=== PATIENT | female | born 1975 | race Caucasian/White ===

== ENCOUNTER → 2018-08-28 07:46 | Outpatient (CLI) | payer OTHER, MEDICAID, SELFPAY ==
[2018-08-28 10:15] LABS: Thyroid Stimulating Hormone 1.24 uIU/mL (0.47-4.68)
== END ==
PROVIDERS: PCP Family Medicine; Visit Provider Family Medicine
DX: E03.9 Hypothyroidism, unspecified (principal)
CPT/HCPCS: 36415; 84443

== ENCOUNTER → 2019-07-24 08:19 | Outpatient (CLI) | payer OTHER, MEDICAID, SELFPAY ==
[2019-07-24 09:21] LABS: Cholesterol 199 mg/dL (140-199); Glucose 109 mg/dL (70-100); HDL Cholesterol 42 mg/dL (40-60); LDL Cholesterol Calculated 129 mg/dL (<100); Triglycerides 142 mg/dL (35-150)
[2019-07-26 17:22] LABS: Hemoglobin A1C% w Est Avg Glu 5.1 % (4.0-6.0)
== END ==
PROVIDERS: PCP Family Medicine; Visit Provider Family Medicine
DX: E66.9 Obesity, unspecified (principal); E03.9 Hypothyroidism, unspecified; R73.09 Other abnormal glucose
CPT/HCPCS: 36415; 80061; 82947; 83036; 84443

== ENCOUNTER → 2020-03-14 09:42 | Outpatient (CLI) | payer OTHER, MEDICAID, SELFPAY ==
--- NOTE | 2020-03-14 | DI.MG.S_ITS ---
BILATERAL DIGITAL SCREENING MAMMOGRAM 3D/2D WITH CAD: 03/14/2020 CLINICAL: Routine screening. Comparison is made to exam dated: 01/24/2018 [facility]. The tissue of both breasts is heterogeneously dense. This may lower the sensitivity of mammography. Current study was also evaluated with a Computer Aided Detection (CAD) system. No significant masses, calcifications, or other findings are seen in either breast. There has been no significant interval change. IMPRESSION: NEGATIVE There is no mammographic evidence of malignancy. A 1 year screening mammogram is recommended. This exam was interpreted at Station ID: [id number]. NOTE: For mammograms, a report in lay terms will be sent to the patient. Approximately 15% of breast malignancies will not be visualized mammographically. In the management of a palpable breast mass, a negative mammogram must not discourage biopsy of a clinically suspicious lesion. Electronically Signed By: Navneet mattson/kiran:03/14/2020 11:00:16 letter sent: Normal Exam ACR BI-RADS Category 1: Negative [id number]
== END ==
PROVIDERS: PCP Family Medicine; Referring Provider Family Medicine; Visit Provider Family Medicine
DX: Z12.31 Encounter for screening mammogram for malignant neoplasm of breast (principal)
CPT/HCPCS: 77063; 77067

== ENCOUNTER → 2020-06-17 09:16 | Outpatient (CLI) | payer OTHER, MEDICAID, SELFPAY ==
[2020-06-17 11:44] LABS: Thyroid Stimulating Hormone 1.11 uIU/mL (0.47-4.68)
== END ==
PROVIDERS: PCP Family Medicine; Referring Provider Family Medicine; Visit Provider Family Medicine
DX: E03.9 Hypothyroidism, unspecified (principal)
CPT/HCPCS: 36415; 84443

== ENCOUNTER → 2021-07-31 08:30 | Outpatient (CLI) | payer OTHER, MEDICAID, SELFPAY ==
[2021-07-31 09:51] LABS: Hemoglobin A1C% w Est Avg Glu 4.8 % (4.0-6.0)
[2021-07-31 10:08] LABS: BUN Creatinine Ratio 16.2 (6-22); Blood Urea Nitrogen 17 mg/dL (7-17); Calcium 9.2 mg/dL (8.4-10.2); Carbon Dioxide 29 mmol/L (22-32); Chloride 101 mmol/L (98-107); Cholesterol 179 mg/dL (140-199); Estimated Glomerular Filt Rate 57.2 mL/min (>60); Glucose 89 mg/dL (70-100); HDL Cholesterol 45 mg/dL (40-60); HEMOLYSIS < 15 (0-50); LDL Cholesterol Calculated 109 mg/dL (<100); Potassium 4.1 mmol/L (3.4-5.1); Sodium 139 mmol/L (137-145); Triglycerides 126 mg/dL (35-150)
== END ==
PROVIDERS: Psychiatry & Neurology Psychiatry; PCP Family Medicine; Referring Provider Family Medicine; Visit Provider Family Medicine
DX: E03.9 Hypothyroidism, unspecified (principal); F33.3 Major depressive disorder, recurrent, severe with psychotic symptoms; Z51.81 Encounter for therapeutic drug level monitoring
CPT/HCPCS: 36415; 80048; 80061; 83036; 84443

== ENCOUNTER → 2021-11-21 08:36 | Outpatient (CLI) | payer OTHER, MEDICAID, SELFPAY ==
[2021-11-21 11:50] LABS: Thyroid Stimulating Hormone 7.87 uIU/mL (0.47-4.68)
== END ==
PROVIDERS: PCP Family Medicine; Referring Provider Family Medicine; Visit Provider Family Medicine
DX: E03.9 Hypothyroidism, unspecified (principal)
CPT/HCPCS: 36415; 84443

== ENCOUNTER → 2022-03-25 09:13 | Outpatient (CLI) | payer OTHER, MEDICAID, SELFPAY ==
[2022-03-25 10:35] LABS: Thyroid Stimulating Hormone 8.25 uIU/mL (0.47-4.68)
== END ==
PROVIDERS: PCP Family Medicine; Referring Provider Family Medicine; Visit Provider Family Medicine
DX: E03.9 Hypothyroidism, unspecified (principal); R89.9 Unspecified abnormal finding in specimens from other organs, systems and tissues
CPT/HCPCS: 36415; 84443

== ENCOUNTER → 2022-06-24 09:52 | Outpatient (CLI) | payer OTHER, MEDICAID, SELFPAY ==
[2022-06-24 12:11] LABS: Add Manual Diff / Slide Review NO; Basophils Absolute Auto 0 /uL (0-100); Basophils Percent Auto 0.6 % (0-2); Eosinophils Absolute Auto 300 /uL (0-450); Hematocrit 35.7 % (36-46); Hemoglobin 12.3 g/dL (12.0-16.0); Lymphocytes Absolute Auto 1400 /uL (1100-4500); Lymphocytes Percent Auto 19.6 % (25-40); Mean Corpuscular HGB Conc 34.5 % (30-36); Mean Corpuscular Hemoglobin 32.3 PG (26-34); Mean Corpuscular Volume 93.7 fL (80-100); Monocytes Absolute Auto 500 /uL (0-900); Monocytes Percent Auto 7.2 % (3-14); Neutrophils Absolute Auto 4900 /uL (1500-7000); Neutrophils Percent Auto 68.6 % (50-75); Platelet Count 312 X10^3/uL (150-400); Red Blood Cell Count 3.81 X10^6/uL (4.0-5.2); Red Cell Distribution Width 12.6 % (11.6-14.8); White Blood Cell Count 7.2 X10^3/uL (4.5-11.0)
[2022-06-24 12:34] LABS: Alanine Aminotransferase 20 IU/L (<35); Albumin 4.2 g/dL (3.5-5.0); Albumin Globulin Ratio 1.1 (1.0-2.8); Alkaline Phosphatase 92 U/L (38-126); Aspartate Aminotransferase 32 IU/L (14-36); BUN Creatinine Ratio 15.8 (6-22); Bilirubin Total 0.2 mg/dL (0.2-1.3); Blood Urea Nitrogen 15 mg/dL (7-17); Calcium 8.5 mg/dL (8.4-10.2); Carbon Dioxide 28 mmol/L (22-32); Chloride 100 mmol/L (98-107); Estimated Glomerular Filt Rate > 60 mL/min (>60); Globulin 3.8 g/dL (1.7-4.1); Glucose 83 mg/dL (70-100); HEMOLYSIS < 15 (0-50); Potassium 3.9 mmol/L (3.4-5.1); Sodium 139 mmol/L (137-145)
[2022-06-24 14:02] LABS: TSH w/ Reflex to FT4 1.79 uIU/mL (0.47-4.68)
== END ==
PROVIDERS: PCP Family Medicine; Referring Provider Physician Assistant; Visit Provider Physician Assistant
DX: Z01.818 Encounter for other preprocedural examination (principal); E03.9 Hypothyroidism, unspecified
CPT/HCPCS: 36415; 80053; 84443; 85025

== ENCOUNTER 2022-07-05 12:53 | Emergency (ER) | payer OTHER, MEDICAID, SELFPAY ==
[2022-07-05 13:20] VITALS: BP 154/75; PULSE 73; RESP 18; TEMP 36.4; O2SAT 100; BMI 34.2
--- NOTE | 2022-07-05 13:23 | DI.RAD.S_ITS ---
PROCEDURE: XR ANKLE RT MIN 3V INDICATIONS: swelling after popping TECHNIQUE: 3 views of the ankle were acquired. COMPARISON: [facility], CR, XR INTRAOPERATIVE FLUORO UP TO 1 HOUR, 06/28/2022, 11:48. [facility], CR, XR FOOT 3 VIEWS WEIGHT BEARING BILATERAL, 01/08/2022, 8:11. FINDINGS: Bones: No fractures or dislocations. Postsurgical changes with arthrodesis at the 1st tarsometatarsal joint. Ankle mortise is normally aligned. No suspicious bony lesions. Soft tissues: No tibiotalar joint effusion. Achilles tendon appears normal. Soft tissue swelling around the ankle. There is lucency in the lateral aspect the ankle. IMPRESSION: 1. No acute osseous abnormalities. 2. Postsurgical changes. 3. Soft tissue swelling and lucency around ankle. Dictated by: Cuco Huang M.D. on 07/05/2022 at 13:49 Approved by: Cuco Huang M.D. on 07/05/2022 at 13:55
[2022-07-05 14:30] VITALS: BP 151/73; PULSE 73; RESP 18; TEMP 37.1; O2SAT 100
--- NOTE | 2022-07-05 14:36 | ED.LOWEXIN ---
HPI - Extremity Injury (Lower) <Vincent Chambers PA-C - Last Filed: 07/05/22 15:51> General Chief Complaint: Extremity Injury, Lower Stated Complaint: Ankle popped- extreme pain Time Seen by Provider: 07/05/22 12:59 Source: patient Mode of arrival: Ambulatory History of Present Illness HPI Narrative: Patient is a 46-year-old female who presents to the emergency room today with complaint of pain and swelling to her right ankle that started at about 1145 this a.m.. Patient she was placing her knee onto the knee walker and felt a pop. Strongly denies any pressure trauma to the area prior to during or after the knee was placed on the walker. States that after that she started to feel this pain and swelling in her ankle and then she reported here today. Patient also admits to having a surgery done on June 28 to her right foot where she had a bunion removed and also had a lengthening of 1 of the bones in the lateral side of her foot. States the surgery was done by .. States that since the surgery the foot has been wrapped with an Jese wrap until yesterday where a boot was placed. Was scheduled to follow-up with Dr. Ratliff in 2 weeks. Denies any other concerns Related Data Home Medications Medication Instructions Recorded Confirmed levocetirizine 5 mg tablet (Xyzal) 5 mg PO DAILY PRN allergy symptoms 04/19/22 06/20/22 Previous Rx's Medication Instructions Recorded lamotrigine 100 mg tablet See Rx Instructions .Route 12/11/21 .COMPLEX #270 tabs fluoxetine 20 mg capsule 60 mg PO DAILY 90 days #270 caps 04/19/22 ziprasidone HCl 80 mg capsule 160 mg PO BEDTIME 90 days #180 caps 04/19/22 diazepam 10 mg tablet See Rx Instructions PO .COMPLEX 06/17/22 #45 tabs levothyroxine 125 mcg tablet See Rx Instructions .Route 07/01/22 .COMPLEX #90 tabs Allergies Allergy/AdvReac Type Severity Reaction Status Date / Time No Known Drug Allergies Allergy Verified 06/20/22 14:54 Review of Systems <Vincent Chambers PA-C - Last Filed: 07/05/22 15:51> Review of Systems Narrative: R.O.S.: General: No fever, chills or fatigue. Cardiovascular: No chest pain or palpitations Respiratory: No S.O.B. HEENT: No congestion, ear pain, rhinorrhea, sore throat or tinnitus Gastrointestinal: No nausea or vomiting : No urinary concerns Skin: No rash or associated abnormalities Musculoskeletal: Pain and swelling to the right foot and ankle. ? Neurological: Awake, alert and in not apparent distress. No Headaches, changes in vision or other related neurological concerns. Patient History <Vincent Chambers PA-C - Last Filed: 07/05/22 15:51> Medical History (Updated 07/05/22 @ 15:50 by Vincent Chambers PA-C) Anxiety Depression Fibroids Hypothyroidism Surgical History No history of previous surgery (06/2016) Family History Brother Age: 41 Depression Mental health problem Joint pain Father Age: 71 Depression Diabetes mellitus Hypertension Mental health problem Grandfather Stroke Heart disease Mother Age: 66 Anxiety Mental health problem Grandmother Age: 88 Alzheimer's disease Mental health problem Grandmother No problems noted. Grandfather No problems noted. Social History marital status: unmarried,single household members: family lives independently: Yes caregiver/support person: No housing: apartment pets and animals: Yes education level: college occupational status: employed current occupational exposures/hazards: No special frederick needs: No leisure activities: reading seatbelt use: always helmet use: Yes water heater temp set < 120 deg: Yes working smoke detector in home: Yes fire extinguisher in home: Yes carbon monox detector in home: Yes firearms in home: No do you feel safe at home: Yes Smoking Status: Never smoker second hand exposure: No alcohol intake: never substance use type: does not use during the past year weight has: decreased > 10 lbs well-balanced diet: daily or most days daily servings fruits/ve-4 caffeine: Yes eating out: rarely or never Type(s) of exercise: walking frequency: daily duration: 30-45 minutes/day Smoking Status: Never smoker Exam <Vincent Chambers PA-C - Last Filed: 07/05/22 15:51> Narrative Exam Narrative: Physical Exam: ? General: normal appearance, well developed, well nourished, alert, and awake. Not in acute distress. ? Head: Normocephalic, no lesions. Chest: Lungs CTAB, no rales, rhonchi or wheezes. ?? Heart: RRR, no murmurs, rubs or gallops. Eyes: PERRLA, EOM's full, conjunctivae clear. ? Neuro: Physiological, no localizing findings, CN3-12 intact. ?? Extremities: Patient has swelling to the entire right foot and distal ankle area. The foot is tender on the dorsal area proximal to the torso area at the area of the 1st and 2nd metatarsals. Patient has Band-Aids on the medial area of the foot at the lateral 1st distal phalangeal joint and at the lateral distal 1st metatarsal area. ? Skin: Normal, no rashes, no lesions noted. ?? PSYCHIATRIC: The mood is good, no blunted affect. Speech is clear. Thought process is linear, thought content is appropriate. The voice is without significant inflection. Gastrointestinal: Soft; NT; ND; Pos BS with Neg. rebound tenderness. No scars or major deformities noted on Visual Inspection. Initial Vital Signs Initial Vital Signs: Vital Signs Temperature 97.6 F 07/05/22 13:20 Pulse Rate 73 07/05/22 13:20 Respiratory Rate 18 07/05/22 13:20 Blood Pressure 154/75 H 07/05/22 13:20 Pulse Oximetry 100 07/05/22 13:20 Oxygen Delivery Method 07/05/22 13:20 <Collin Rosario DO - Last Filed: 07/05/22 16:04> Initial Vital Signs Initial Vital Signs: Vital Signs Temperature 97.6 F 07/05/22 13:20 Pulse Rate 73 07/05/22 13:20 Respiratory Rate 18 07/05/22 13:20 Blood Pressure 154/75 H 07/05/22 13:20 Pulse Oximetry 100 07/05/22 13:20 Oxygen Delivery Method 07/05/22 13:20 Course <Vincent Chambers PA-C - Last Filed: 07/05/22 15:51> Orders Ordered: ED Orders 07/05/22 13:23 XR ankle RT min 3V Stat Vital Signs Vital signs: Vital Signs - 8 hr 07/05/22 13:20 07/05/22 14:30 Temperature 97.6 F 98.7 F Pulse Rate 73 73 Respiratory Rate 18 18 Blood Pressure 154/75 H 151/73 H Pulse Oximetry 100 100 Oxygen Delivery Method Room Air Room Air <Collin Rosario DO - Last Filed: 07/05/22 16:04> Orders Ordered: ED Orders 07/05/22 13:23 XR ankle RT min 3V Stat Vital Signs Vital signs: Vital Signs - 8 hr 07/05/22 13:20 07/05/22 14:30 Temperature 97.6 F 98.7 F Pulse Rate 73 73 Respiratory Rate 18 18 Blood Pressure 154/75 H 151/73 H Pulse Oximetry 100 100 Oxygen Delivery Method Room Air Room Air MDM - Extremity Injury (Lower) <Vincent Chambers PA-C - Last Filed: 07/05/22 15:51> Imaging Data Extremity x-ray #1: Radiologist's Impression: [address] [address] XRay Report Signed Patient: Barbara Toro I MR#: [id number] : 1975 Acct:[id number] Age/Sex: 46 / F Date of Service: 07/05/22 Loc: ED Accession Number: [id number] ?? Procedure: XR ankle RT min 3V Ordering Provider: Vincent Chambers P.A-C PROCEDURE:? XR ANKLE RT MIN 3V ? INDICATIONS:? swelling after popping ? TECHNIQUE:? 3 views of the ankle were acquired.? ? COMPARISON:? [facility], CR, XR INTRAOPERATIVE FLUORO UP TO 1 HOUR, 06/28/2022, 11:48.? [facility], CR, XR FOOT 3 VIEWS WEIGHT BEARING BILATERAL, 01/08/2022, 8:11. ? FINDINGS:? ? Bones:? No fractures or dislocations.? Postsurgical changes with arthrodesis at the 1st tarsometatarsal joint.? Ankle mortise is normally aligned.? No suspicious bony lesions.? ? Soft tissues:? No tibiotalar joint effusion.? Achilles tendon appears normal.? Soft tissue swelling around the ankle.? There is lucency in the lateral aspect the ankle. ? ? IMPRESSION: ? 1. No acute osseous abnormalities. 2. Postsurgical changes. 3. Soft tissue swelling and lucency around ankle. ? Dictated by: Cuco Huang M.D. on 07/05/2022 at 13:49 ? ? Approved by: Cuco Huang M.D. on 07/05/2022 at 13:55 ? MDM Narrative Medical decision making narrative: Patient was in the emergency room playing all day with pain status post a he heard getting onto the walker. Admits to having surgery done on June 28 to her right foot. X-ray revealed postsurgical changes swelling and lucency around the ankle. This provider called discussed the patient's condition with , who is on-call for . Dr. Pryor advised the patient to continue in a non weight bearing boot at this time and has scheduled the patient to see on Friday of this week at 3:40 a.m.. Advised of this information. Patient also advised to continue the pain medication that she has now. She states she has enough for another week. Patient also advised to return to his original emergent concerns arise before her appointment on Friday at 3:40 a.m.. Patient agrees with plan. Discharge Plan Departure Patient Disposition: Home Clinical Impression: Acute pain of right foot, Acute postoperative pain of right foot Instructions: DI for Foot Pain Activity Restrictions/Additional Instructions: *You have been diagnosed with postsurgical pain to her right foot. I have discussed your issue with the on-call provider of the surgeon who operated only a foot. And they have scheduled for you to follow-up with on Friday at 3:40 a.m.. The on-call orthopedic provider advised her to continue to wear the boot and continue to non weightbear and continue to take your current pain medicines until the follow-up. You were also advised to return to the emergency room should any emergent concerns arise. [ ] *What to do: *Please continue to take your regular medications as directed. [ ] New medication prescriptions sent to your pharmacy: [ ] [ ] New medication written as a paper prescription [x] No new medications given *Please follow up with your primary care provider in 2-3 days, call for an appointment. Let them know you were seen in the Emergency Department and that we ask that you be seen in follow up. We will electronically transmit a record of today's note if your PCP is in our system *If you do not have a primary care provider please contact the [facility] Resource line at [phone]. They will ask some questions about your medical history and help get you set up with a doctor in the community. *Return to Emergency Department if you should have any new, worsening or concerning symptoms, such as [fever greater than 101 F, shaking chills, worsening pain, persistent vomiting or other bothersome symptoms] Prescriptions: No Action levocetirizine [Xyzal] 5 mg tablet 5 mg PO DAILY PRN (Reason: allergy symptoms) ziprasidone HCl 80 mg capsule 160 mg PO BEDTIME 90 Days Qty: 180 1RF fluoxetine 20 mg capsule 60 mg PO DAILY 90 Days Qty: 270 1RF lamotrigine 100 mg tablet See Rx Instructions .ROUTE .COMPLEX Qty: 270 2RF Dose Instruction: TAKE THREE TABLETS BY MOUTH DAILY Rx Instructions: TAKE THREE TABLETS BY MOUTH DAILY diazepam 10 mg tablet See Rx Instructions PO .COMPLEX Qty: 45 5RF Rx Instructions: 5mg QAM, 10mg QHS levothyroxine 125 mcg tablet See Rx Instructions .ROUTE .COMPLEX Qty: 90 0RF Dose Instruction: TAKE ONE TABLET BY MOUTH ONE TIME DAILY Rx Instructions: TAKE ONE TABLET BY MOUTH ONE TIME DAILY Referrals: Yessica Rodgers MD [Primary Care Provider] - <Collin Rosario, DO - Last Filed: 07/05/22 16:04> Cosign ED Attending Cosignature Attestation: Dr Rosario Co-Sign Statement: I was available for consultation during this patient's emergency department visit. This chart is signed by myself for administrative purposes only. I did not have direct contact with this patient during this visit. They were seen independently by the APC.
[2022-07-05 16:04] VITALS: BP 143/78; PULSE 68; RESP 18; O2SAT 100
== END 2022-07-05 16:04 | disposition home or self-care (01) ==
PROVIDERS: Emergency Provider Physician Assistant; PCP Family Medicine
DX: M25.571 Pain in right ankle and joints of right foot (principal); G89.18 Other acute postprocedural pain; X50.1XXA Overexertion from prolonged static or awkward postures, initial encounter
CPT/HCPCS: 73610; 99283

== ENCOUNTER 2022-12-26 08:15 | Outpatient (RCR) | payer OTHER, MEDICAID, SELFPAY ==
--- NOTE | 2022-11-07 15:45 | PT.OPPOC ---
Physical, Occupational & Speech Therapy At [facility] Current Diagnoses Hallux valgus (acquired), right foot (11/07/22) Hallux valgus (acquired), left foot (11/07/22) Spontaneous rupture of other tendons, unspecified lower leg (11/07/22) Visit Care Team Role Provider Type Yessica Rodgers MD Family Provider Physician Primary Care Provider Specialty: Family Practice Address: [address] [place] [address], [facility] [place], [address] Email: [email or web address] Alberto Jimenez DPM Attending Provider Non-Staff Referring Provider Specialty: Podiatry Address: [address] [place] [address], [id number] Email: Plan Of Care PT-OP-T Assessment and Plan Start: 11/06/22 11:52 Freq: Status: Active Protocol: Document 11/07/22 09:06 LRN (Rec: 11/07/22 09:56 LRN [id number]) Physical Therapy Assessment Rehab Potential Rehabilitation Potential Excellent Evaluation Complexity Number of Personal Factors/Comorbidities 1-2 Number of Body Systems Impaired 4 or More Clinical Presentation at Evaluation Evolving Impairments Impairments Activity Tolerance,Balance, Functional Mobility,Gait,Pain, ROM,Soft Tissue Mobility, Strength Goals Three Impairment Antalgic gait Impairment Decreased R ankle and Big toe mobility resulting in mild antalgic gait. Short Term Goal (STG) Pt will be educated in R ankle mobility and Bilateral big toe ext stretch. STG Duration 11/15/22 Care Home Goal (LTG) Pt will be able to walk without a limp, improve R ankle mobility to normal, and improve J Luis Big toe extension mobility. LTG Duration 11/22/22 Two Impairment Decreased R foot scar mobility Impairment R ankle tension: medial/ lateral, along inner edge of foot length, and front of ankle. Short Term Goal (STG) Pt will be educated in self scar mobs and soft tissue mobilization of R foot for pain relief. STG Duration 11/15/22 Care Home Goal (LTG) Improve scar and soft tissue mobility to decrease ache/pain at R ankle medial, lateral, along inner edge of foot, and in front of ankle with ankle AROM. LTG Duration 11/22/22 One Impairment Pt lacks appropriate self care HEP. Short Term Goal (STG) Educate pt in supportive shoe wear or use of shoe inserts for plantar arch support. STG Duration 11/15/22 Type Soldering Machine Tender Goal (LTG) Pt will be independent in a self care HEP of ankle and big toe mobility and strenghtening ex's. LTG Duration 11/22/22 Assessment Summary Assessment Pt is a 47 yo female who presents s/p R tibialis tendon repair. Pt presents with decreased STM of the foot in the area of the well healed scars, decreased R ankle/big toe mobility and strength. Pt's foot is moderately swollen and mildly warm to the touch around the R ankle and lateral side of the foot in the areas of the healed scars. The pt demonstrates a slight antalgic gait due to decreased R big toe and ankle mobility. The pt's insurance is very limited; therefore the pt has chosen at this time to complete her therapy by the end of this month due to financial concerns. The pt will benefit from skilled physical therapy to progress her towards a self care program to work towards achieving the above stated goals with her restrictive rehabilitative time frame. Physical Therapy Plan Frequency and Duration Frequency of Treatment 2x/Week Plan of Care Start Date 11/07/22 Plan of Care End Date 11/22/22 Therapeutic Interventions Therapeutic Interventions Balance Training,Gait Training ,Home Exercise Program,Joint Mobilizations,Manual Therapy, Neuromuscular Re-education, Self-Care/Home Management,Soft Tissue Mobilization,Taping, Therapeutic Activities, Therapeutic Exercises Modalities Cold Pack/Ice Massage Next Visit Focus/Plan Next Note Type Treatment Note Next Visit Plan Review self care edema management with handout issued . Check j luis Big toe strength. Assess TUG. Next treatment: Educate pt in R toe/ankle ROM, self STM to well healed scars, and LE/foot lymph management. Educate in supportive shoe wear or use of shoe inserts. STM to well healed scars, and LE lymph management. Ther Ex/HEP: R ankle/J Luis Big toe (ext) ROM & strengthening exercises, issue self care of pain/edema management. Balance and gait training. Modalities for pain. Plan of Care Dates Plan of Care Start Date 11/07/22 Plan of Care End Date 11/22/22 Electronically Signed by: Karissa Katz, PT 11/09/22 1446 If you are in agreement with this Plan of Care, please return a signed and dated copy. I have reviewed this Plan of Care and certify that the skilled therapy services above are required to meet the patient?s needs. Physician Signature Date Printed Name and Credentials Clinical Instructor Signature Printed Name and Credentials
--- NOTE | 2022-11-07 17:45 | PT.OIE ---
Current Diagnoses Hallux valgus (acquired), right foot (11/07/22) Hallux valgus (acquired), left foot (11/07/22) Spontaneous rupture of other tendons, unspecified lower leg (11/07/22) Past Medical History (Last Reviewed 03/28/22 @ 09:22 by Su Romano PA-C) Anxiety Depression Fibroids Hypothyroidism Past Surgical History (Last Reviewed 03/28/22 @ 09:22 by Su Romano PA-C) No history of previous surgery (06/2016) Visit Care Team Role Provider Type Yessica Rodgers MD Family Provider Physician Primary Care Provider Specialty: Family Practice Address: [address] [place] [address], [id number] Email: [email or web address] Alberto Jimenez DPM Attending Provider Non-Staff Referring Provider Specialty: Podiatry Address: [address] [place] [address], [id number] Email: Physical Therapy Initial Evaluation PT-OP-A Visit Information Start: 11/06/22 11:52 Freq: Status: Active Protocol: Document 11/07/22 09:06 LRN (Rec: 11/07/22 09:56 LRN [id number]) Out-Patient Physical Therapy Visit Information Visit Information Visit Type Initial Evaluation Visit Start Time 09:06 Visit Stop Time 09:54 Total Visit Minutes 48 Visit Number 10/10 Evaluation Information Evaluation Date 11/07/22 Precautions Precautions On antidepressant and thyroid med (hypothyroid). PT-OP-B Current Condition Start: 11/06/22 11:52 Freq: Status: Active Protocol: Document 11/07/22 09:06 LRN (Rec: 11/07/22 09:56 LRN [id number]) Current Condition History of Current Condition Onset Date 07/23/22 Current Complaints R ankle tightness and pain, limited mobility History of Current Condition R Bunion removed , then tore Tibialis anterior tendon in R ankle and had surgery . Now being referred to PT for rehab. Has been doing R ankle AROM (PF/DF/IV/EV, circles, standing gastroc stretch). Came out of boot and put back in the boot to protect the foot, then came out of boot and was told to move normal. States she has an extra length of tendon in front of ankle placed from organ donor because initially the tendon couldn't be connected. Prior Treatments and Tests gave pt ankle ex's to do daily. Future Testing and Treatments Planned F/U with DPM this month. Developmental History Developmental History R lateral scar from bunion surgery. Treatment Goals Patient/Caregiver Goals Pt goals with therapy is: Not walk with limp, and normal R ankle mobility, decrease ache/ pain at R ankle (medial lateral and tension along inner edge of foot and tension in front of ankle). Prior Functional Status Baseline Function- ADL's Independent Baseline Function- Mobility Independent Baseline Function- Gait Ambulated without assist device or limp. 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 Baseline Function- Other Normal gait ascend/desend stairs. Current Functional Impairments (Reported) Functional Limitations- ADL's Step to step descending stairs . 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 Functional Limitations- Other Pt not able to squat Personal Factors Other Personal Factors That May Effect Depression controlled by meds. Therapy/Recovery Single. Lives in double level home. PT-OP-C Subjective Start: 11/06/22 11:52 Freq: Status: Active Protocol: Document 11/07/22 09:06 LRN (Rec: 11/07/22 09:56 LRN [id number]) Patient Questionnaires Foot & Ankle Ability Measure- ADL and Sports FAAM-ADL Score 56 FAAM-ADL Impairment 20 to 39% Impaired (Score 50- 66) FAAM-Sport Score 16 FAAM-Sport Impairment 40 to 59% Impaired (Score 12- 18) Lower Extremity Functional Scale LEFS Score 60 LEFS Impairment 20 to 39% Impaired (Score 48- 62) OP-PT Pain Assessment Pain Assessment Grid Paper Pain Assessment Grid Completed Yes Location R ankle Pain Location Details Medial/lateral R ankle and along medial side of foot. Intensity 2 Scale Used Numeric (0 - 10) Description Tightness PT-OP-D Balance Start: 11/06/22 11:52 Freq: Status: Active Protocol: Document 11/07/22 09:06 LRN (Rec: 11/07/22 09:56 LRN [id number]) Balance Tests Single Limb Standing Single Limb- Right 1 sec Single Limb- Left 1sec PT-OP-E Functional Tests Start: 11/06/22 11:52 Freq: Status: Active Protocol: Document 11/07/22 09:06 LRN (Rec: 11/07/22 09:56 LRN [id number]) Functional Tests Five Times Sit to Stand Test Score 16 Comments Webbed chair without shoes. PT-OP-G Mobility & Gait Start: 11/06/22 11:52 Freq: Status: Active Protocol: Document 11/07/22 09:06 LRN (Rec: 11/09/22 14:43 LRN [id number]) OP Gait Assessment Gait Gait Assistance Required: Independent Able to Maintain Weight Bearing Status Yes During Gait Assistive Devices Assistive Device None Gait Deviations General Gait Pattern Antalgic Factors Limiting Gait Function Factors Limiting Gait Function Decreased Sensation,Decreased Strength,Limited Range of Motion,Pain,Poor Balance Comments Gait Comments Minimal limp noted with short step lengths. Pt wearing non supportive shoes, Van-like shoes. PT-OP-H Neuro Start: 11/06/22 11:52 Freq: Status: Active Protocol: Document 11/07/22 09:06 LRN (Rec: 11/09/22 14:43 LRN [id number]) Sensation Evaluation Gross Sensation Gross Sensation Right LE Impaired Sensation Description Numbness Comments Summary Comments R foot: decreased sensation and tissue tightness noted around well healed scars. PT-OP-J Posture/Palpation/Skin Start: 11/06/22 11:52 Freq: Status: Active Protocol: Document 11/07/22 09:06 LRN (Rec: 11/07/22 09:56 LRN [id number]) Posture Evaluation Position Standing L-Spine Posture Increased Lordosis Pelvis Posture Anteriorly Tilted Weight Distribution Balanced Knee Posture (L) Neutral,(R) Neutral Ankle/Foot Posture (L) Calcaneal Inversion,(L) Forefoot Abducted,(R) Forefoot Abducted Foot Arch (L) No Arch,(R) No Arch Comments Posture Comments Bilateral Hallux valgus Palpation Assessment Location R foot Palpation Location Anterior and medial along well healed scar Palpation Findings Edema,Soft Tissue Tightness Palpation Details Increased temp at anterior and medial slide of ankle and foot. Tender from proximal end of scar to ankle and at the medial side of foot at proximal end. Palpation of proximal scar at ankle is felt at proximal medial foot scar. R ankle Palpation Location Around malleolus Palpation Findings Edema,Tenderness Palpation Details Increased temp at anterior and medial slide of ankle and foot. Decreased STM anterior and medial along well healed scars. PT-OP-K Range of Motion Start: 11/06/22 11:52 Freq: Status: Active Protocol: Document 11/07/22 09:06 LRN (Rec: 11/07/22 09:56 LRN [id number]) Knee Goniometric Range of Motion Knee Right Knee ROM WFL Yes Left Knee ROM WFL Yes Ankle and Foot Goniometric Range of Motion Ankle and Foot Right Active Ankle/Foot ROM WFL No Testing Position Supine Plantarflexion 65 Inversion 20 Eversion 21 Comments DF lacks 4 deg's to neutral Left Active Ankle/Foot ROM WFL Yes Testing Position Supine Dorsiflexion with Knee Extended 7 Plantarflexion 60 Inversion 30 Eversion 28 Toe Range of Motion Toe Right Great Toe MTP Flexion Active (degrees) 53 MTP Extension Active (degrees) 10 Left Great Toe MTP Flexion Active (degrees) 57 MTP Extension Active (degrees) 35 PT-OP-M Strength Start: 11/06/22 11:52 Freq: Status: Active Protocol: Document 11/07/22 09:06 LRN (Rec: 11/07/22 09:56 LRN [id number]) Knee Strength Knee Manual Muscle Testing Right Flexion (S2) 5 Normal Extension (L3) 5 Normal Left Flexion (S2) 5 Normal Extension (L3) 5 Normal Ankle/Foot Strength Ankle and Foot Manual Muscle Testing Right Plantarflexion (S1) 5 Normal Inversion 3+ Fair+ Eversion (S1) 5 Normal Left Comments All strength is 5/5. PT-OP-Q Treatments Start: 11/06/22 11:52 Freq: Status: Active Protocol: Document 11/07/22 09:06 LRN (Rec: 11/07/22 09:56 LRN [id number]) Self-Care/Home Management Treatment Education Patient Education Pain Management Other Education Discussed results of evaluation, goals, and plan of care (POC). Pt agreeable to goals and POC. Educated pt in RICE management for edema. Activities Self-Care/Home Management Activities I/S pt in edema management for elevation of foot, compressive wear of foot and use of cold pack for r foot and ankle. PT-OP-T Assessment and Plan Start: 11/06/22 11:52 Freq: Status: Active Protocol: Document 11/07/22 09:06 LRN (Rec: 11/07/22 09:56 LRN [id number]) Physical Therapy Assessment Rehab Potential Rehabilitation Potential Excellent Evaluation Complexity Number of Personal Factors/Comorbidities 1-2 Number of Body Systems Impaired 4 or More Clinical Presentation at Evaluation Evolving Impairments Impairments Activity Tolerance,Balance, Functional Mobility,Gait,Pain, ROM,Soft Tissue Mobility, Strength Goals Three Impairment Antalgic gait Impairment Decreased R ankle and Big toe mobility resulting in mild antalgic gait. Short Term Goal (STG) Pt will be educated in R ankle mobility and Bilateral big toe ext stretch. STG Duration 11/15/22 [facility] Goal (LTG) Pt will be able to walk without a limp, improve R ankle mobility to normal, and improve J Luis Big toe extension mobility. LTG Duration 11/22/22 Two Impairment Decreased R foot scar mobility Impairment R ankle tension: medial/ lateral, along inner edge of foot length, and front of ankle. Short Term Goal (STG) Pt will be educated in self scar mobs and soft tissue mobilization of R foot for pain relief. STG Duration 11/15/22 Collections Clerk Goal (LTG) Improve scar and soft tissue mobility to decrease ache/pain at R ankle medial, lateral, along inner edge of foot, and in front of ankle with ankle AROM. LTG Duration 11/22/22 One Impairment Pt lacks appropriate self care HEP. Short Term Goal (STG) Educate pt in supportive shoe wear or use of shoe inserts for plantar arch support. STG Duration 11/15/22 [facility] Goal (LTG) Pt will be independent in a self care HEP of ankle and big toe mobility and strenghtening ex's. LTG Duration 11/22/22 Assessment Summary Assessment Pt is a 47 yo female who presents s/p R tibialis tendon repair. Pt presents with decreased STM of the foot in the area of the well healed scars, decreased R ankle/big toe mobility and strength. Pt's foot is moderately swollen and mildly warm to the touch around the R ankle and lateral side of the foot in the areas of the healed scars. The pt demonstrates a slight antalgic gait due to decreased R big toe and ankle mobility. The pt's insurance is very limited; therefore the pt has chosen at this time to complete her therapy by the end of this month due to financial concerns. The pt will benefit from skilled physical therapy to progress her towards a self care program to work towards achieving the above stated goals with her restrictive rehabilitative time frame. Physical Therapy Plan Frequency and Duration Frequency of Treatment 2x/Week Plan of Care Start Date 11/07/22 Plan of Care End Date 11/22/22 Therapeutic Interventions Therapeutic Interventions Balance Training,Gait Training ,Home Exercise Program,Joint Mobilizations,Manual Therapy, Neuromuscular Re-education, Self-Care/Home Management,Soft Tissue Mobilization,Taping, Therapeutic Activities, Therapeutic Exercises Modalities Cold Pack/Ice Massage Next Visit Focus/Plan Next Note Type Treatment Note Next Visit Plan Review self care edema management with handout issued . Check j luis Big toe strength. Assess TUG. Next treatment: Educate pt in R toe/ankle ROM, self STM to well healed scars, and LE/foot lymph management. Educate in supportive shoe wear or use of shoe inserts. STM to well healed scars, and LE lymph management. Ther Ex/HEP: R ankle/J Luis Big toe (ext) ROM & strengthening exercises, issue self care of pain/edema management. Balance and gait training. Modalities for pain.
--- NOTE | 2022-11-12 17:17 | PT.OTN ---
Current Diagnoses Hallux valgus (acquired), right foot (11/12/22) Hallux valgus (acquired), left foot (11/12/22) Spontaneous rupture of other tendons, unspecified lower leg (11/12/22) Physical Therapy Treatment Note PT-OP-A Visit Information Start: 11/06/22 11:52 Freq: Status: Active Protocol: Document 11/12/22 09:04 LRN (Rec: 11/12/22 09:47 LRN [id number]) Out-Patient Physical Therapy Visit Information Visit Information Visit Type Treatment Note Visit Start Time 09:04 Visit Stop Time 09:42 Total Visit Minutes 38 Visit Number 11/10 Evaluation Information Evaluation Date 11/07/22 Precautions Precautions On antidepressant and thyroid med (hypothyroid). PT-OP-B Current Condition Start: 11/06/22 11:52 Freq: Status: Active Protocol: Document 11/07/22 09:06 LRN (Rec: 11/07/22 09:56 LRN [id number]) Current Condition History of Current Condition Onset Date 07/23/22 Current Complaints R ankle tightness and pain, limited mobility History of Current Condition R Bunion removed , then tore Tibialis anterior tendon in R ankle and had surgery . Now being referred to PT for rehab. Has been doing R ankle AROM (PF/DF/IV/EV, circles, standing gastroc stretch). Came out of boot and put back in the boot to protect the foot, then came out of boot and was told to move normal. States she has an extra length of tendon in front of ankle placed from organ donor because initially the tendon couldn't be connected. Prior Treatments and Tests gave pt ankle ex's to do daily. Future Testing and Treatments Planned F/U with DPM this month. Developmental History Developmental History R lateral scar from bunion surgery. Treatment Goals Patient/Caregiver Goals Pt goals with therapy is: Not walk with limp, and normal R ankle mobility, decrease ache/ pain at R ankle (medial lateral and tension along inner edge of foot and tension in front of ankle). Prior Functional Status Baseline Function- ADL's Independent Baseline Function- Mobility Independent Baseline Function- Gait Ambulated without assist device or limp. 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 Baseline Function- Other Normal gait ascend/desend stairs. Current Functional Impairments (Reported) Functional Limitations- ADL's Step to step descending stairs . 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 Functional Limitations- Other Pt not able to squat Personal Factors Other Personal Factors That May Effect Depression controlled by meds. Therapy/Recovery Single. Lives in double level home. PT-OP-C Subjective Start: 11/06/22 11:52 Freq: Status: Active Protocol: Document 11/12/22 09:04 LRN (Rec: 11/12/22 16:55 LRN [id number]) OP-PT Subjective Patient Comments Patient Comments Pt states she has stiffness at the ankle after therapy. R lateral ankle region is painful to palpation. PT-OP-D Balance Start: 11/06/22 11:52 Freq: Status: Active Protocol: Document 11/07/22 09:06 LRN (Rec: 11/07/22 09:56 LRN [id number]) Balance Tests Single Limb Standing Single Limb- Right 1 sec Single Limb- Left 1sec PT-OP-E Functional Tests Start: 11/06/22 11:52 Freq: Status: Active Protocol: Document 11/12/22 09:04 LRN (Rec: 11/12/22 17:16 LRN [id number]) Functional Tests Timed Up and Go (TUG) Score 12 secs Comments Webbed chair, van type shoes. TUG Impairment Rating 20 to <40% Impaired (Score 12- 13) PT-OP-G Mobility & Gait Start: 11/06/22 11:52 Freq: Status: Active Protocol: Document 11/07/22 09:06 LRN (Rec: 11/09/22 14:43 LRN [id number]) OP Gait Assessment Gait Gait Assistance Required: Independent Able to Maintain Weight Bearing Status Yes During Gait Assistive Devices Assistive Device None Gait Deviations General Gait Pattern Antalgic Factors Limiting Gait Function Factors Limiting Gait Function Decreased Sensation,Decreased Strength,Limited Range of Motion,Pain,Poor Balance Comments Gait Comments Minimal limp noted with short step lengths. Pt wearing non supportive shoes, Van-like shoes. PT-OP-H Neuro Start: 11/06/22 11:52 Freq: Status: Active Protocol: Document 11/07/22 09:06 LRN (Rec: 11/09/22 14:43 LRN [id number]) Sensation Evaluation Gross Sensation Gross Sensation Right LE Impaired Sensation Description Numbness Comments Summary Comments R foot: decreased sensation and tissue tightness noted around well healed scars. PT-OP-J Posture/Palpation/Skin Start: 11/06/22 11:52 Freq: Status: Active Protocol: Document 11/07/22 09:06 LRN (Rec: 11/07/22 09:56 LRN [id number]) Posture Evaluation Position Standing L-Spine Posture Increased Lordosis Pelvis Posture Anteriorly Tilted Weight Distribution Balanced Knee Posture (L) Neutral,(R) Neutral Ankle/Foot Posture (L) Calcaneal Inversion,(L) Forefoot Abducted,(R) Forefoot Abducted Foot Arch (L) No Arch,(R) No Arch Comments Posture Comments Bilateral Hallux valgus Palpation Assessment Location R foot Palpation Location Anterior and medial along well healed scar Palpation Findings Edema,Soft Tissue Tightness Palpation Details Increased temp at anterior and medial slide of ankle and foot. Tender from proximal end of scar to ankle and at the medial side of foot at proximal end. Palpation of proximal scar at ankle is felt at proximal medial foot scar. R ankle Palpation Location Around malleolus Palpation Findings Edema,Tenderness Palpation Details Increased temp at anterior and medial slide of ankle and foot. Decreased STM anterior and medial along well healed scars. PT-OP-K Range of Motion Start: 11/06/22 11:52 Freq: Status: Active Protocol: Document 11/07/22 09:06 LRN (Rec: 11/07/22 09:56 LRN [id number]) Knee Goniometric Range of Motion Knee Right Knee ROM WFL Yes Left Knee ROM WFL Yes Ankle and Foot Goniometric Range of Motion Ankle and Foot Right Active Ankle/Foot ROM WFL No Testing Position Supine Plantarflexion 65 Inversion 20 Eversion 21 Comments DF lacks 4 deg's to neutral Left Active Ankle/Foot ROM WFL Yes Testing Position Supine Dorsiflexion with Knee Extended 7 Plantarflexion 60 Inversion 30 Eversion 28 Toe Range of Motion Toe Right Great Toe MTP Flexion Active (degrees) 53 MTP Extension Active (degrees) 10 Left Great Toe MTP Flexion Active (degrees) 57 MTP Extension Active (degrees) 35 PT-OP-M Strength Start: 11/06/22 11:52 Freq: Status: Active Protocol: Document 11/07/22 09:06 LRN (Rec: 11/07/22 09:56 LRN [id number]) Knee Strength Knee Manual Muscle Testing Right Flexion (S2) 5 Normal Extension (L3) 5 Normal Left Flexion (S2) 5 Normal Extension (L3) 5 Normal Ankle/Foot Strength Ankle and Foot Manual Muscle Testing Right Plantarflexion (S1) 5 Normal Inversion 3+ Fair+ Eversion (S1) 5 Normal Left Comments All strength is 5/5. PT-OP-Q Treatments Start: 11/06/22 11:52 Freq: Status: Active Protocol: Document 11/12/22 09:04 LRN (Rec: 11/12/22 09:47 LRN [id number]) Therapeutic Exercises Supine Exercises R Big Toe ROM Supine Exercise Name R Big Toe PROM/AAROM/AROM - DF Side right Reps/Minutes 6' R Ankle ROM Supine Exercise Name R ankle PROM/AAROM/AROM - primarily DF, EV Side right Reps/Minutes 14' Standing Exercises Gastroc/Soleus stretch Standing Exercise Name Gastroc/Soleus stretch Side right Reps/Minutes 30 each Manual Therapy Treatment Soft Tissue Mobilization Scar Mob Body Location R foot: Top/medial side, and w /less pressure lateral ankle Mobilization Type Myofascial Release,Sustained Pressure Body Position Supine Joint Mobilizations R ankle Joint R ankle Direction PA Body Position Supine PT-OP-T Assessment and Plan Start: 11/06/22 11:52 Freq: Status: Active Protocol: Document 11/12/22 09:04 LRN (Rec: 11/12/22 09:47 LRN [id number]) Physical Therapy Assessment Goals Three Impairment Antalgic gait Impairment Decreased R ankle and Big toe mobility resulting in mild antalgic gait. Short Term Goal (STG) Pt will be educated in R ankle mobility and Bilateral big toe ext stretch. 11/12/22: Pt educated in self stretch for Big toe ext. STG Duration 11/15/22 progressed 11/12/22 [facility] Goal (LTG) Pt will be able to walk without a limp, improve R ankle mobility to normal, and improve Landry Big toe extension mobility. LTG Duration 11/22/22 Two Impairment Decreased R foot scar mobility Impairment R ankle tension: medial/ lateral, along inner edge of foot length, and front of ankle. Short Term Goal (STG) Pt will be educated in self scar mobs and soft tissue mobilization of R foot for pain relief. 11/12/22: Pt I/S in R ankle self scar mobs and gentle STM of lateral ankle. STG Duration 11/15/22 (11/12/22: MET GOAL, but needs review for understanding) Stacker Attendant Goal (LTG) Improve scar and soft tissue mobility to decrease ache/pain at R ankle medial, lateral, along inner edge of foot, and in front of ankle with ankle AROM. LTG Duration 11/22/22 One Impairment Pt lacks appropriate self care HEP. Short Term Goal (STG) Educate pt in supportive shoe wear or use of shoe inserts for plantar arch support. STG Duration 11/15/22 [facility] Goal (LTG) Pt will be independent in a self care HEP of ankle and big toe mobility and strenghtening ex's. LTG Duration 11/22/22 Assessment Summary Assessment Pt is s/p R tibialis tendon repair, ~3.5 months ago. TUG is 12 secs. Big to strength is normal bilaterally. She tolerated stretch into ankle DF without c/o's and tolerated STM to well healed scars except at lateral ankle she was quite sensative to pressure in the inferior and posterior aspect of the R lateral malleolus. Pt is receptive to using CP at home after therapy, as she was going home. Physical Therapy Plan Frequency and Duration Frequency of Treatment 2x/Week Plan of Care Start Date 11/07/22 Plan of Care End Date 11/22/22 Next Visit Focus/Plan Next Note Type Treatment Note Next Visit Plan Review self care edema management with handout issued . Next treatment: Educate HEP: R ankle ROM, self STM to well healed scars, and LE/foot lymph management. Educate in supportive shoe wear or use of shoe inserts. STM to well healed scars, and LE lymph management. Ther Ex/HEP: R ankle/Landry Big toe (ext) ROM & strengthening exercises, issue self care of pain/edema management. Balance and gait training. Modalities for pain.
--- NOTE | 2022-11-15 16:33 | PT.OTN ---
Current Diagnoses Hallux valgus (acquired), right foot (11/15/22) Hallux valgus (acquired), left foot (11/15/22) Spontaneous rupture of other tendons, unspecified lower leg (11/15/22) Physical Therapy Treatment Note PT-OP-A Visit Information Start: 11/06/22 11:52 Freq: Status: Active Protocol: Document 11/15/22 09:10 LRN (Rec: 11/15/22 09:49 LRN [id number]) Out-Patient Physical Therapy Visit Information Visit Information Visit Type Treatment Note Visit Start Time 09:10 Visit Stop Time 09:48 Total Visit Minutes 38 Visit Number 12/08 Evaluation Information Evaluation Date 11/07/22 Precautions Precautions On antidepressant and thyroid med (hypothyroid). PT-OP-B Current Condition Start: 11/06/22 11:52 Freq: Status: Active Protocol: Document 11/07/22 09:06 LRN (Rec: 11/07/22 09:56 LRN [id number]) Current Condition History of Current Condition Onset Date 07/23/22 Current Complaints R ankle tightness and pain, limited mobility History of Current Condition R Bunion removed , then tore Tibialis anterior tendon in R ankle and had surgery . Now being referred to PT for rehab. Has been doing R ankle AROM (PF/DF/IV/EV, circles, standing gastroc stretch). Came out of boot and put back in the boot to protect the foot, then came out of boot and was told to move normal. States she has an extra length of tendon in front of ankle placed from organ donor because initially the tendon couldn't be connected. Prior Treatments and Tests gave pt ankle ex's to do daily. Future Testing and Treatments Planned F/U with DPM this month. Developmental History Developmental History R lateral scar from bunion surgery. Treatment Goals Patient/Caregiver Goals Pt goals with therapy is: Not walk with limp, and normal R ankle mobility, decrease ache/ pain at R ankle (medial lateral and tension along inner edge of foot and tension in front of ankle). Prior Functional Status Baseline Function- ADL's Independent Baseline Function- Mobility Independent Baseline Function- Gait Ambulated without assist device or limp. 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 Baseline Function- Other Normal gait ascend/desend stairs. Current Functional Impairments (Reported) Functional Limitations- ADL's Step to step descending stairs . 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 Functional Limitations- Other Pt not able to squat Personal Factors Other Personal Factors That May Effect Depression controlled by meds. Therapy/Recovery Single. Lives in double level home. 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 States PT-OP-D Balance Start: 11/06/22 11:52 Freq: Status: Active Protocol: Document 11/07/22 09:06 LRN (Rec: 11/07/22 09:56 LRN [id number]) Balance Tests Single Limb Standing Single Limb- Right 1 sec Single Limb- Left 1sec PT-OP-E Functional Tests Start: 11/06/22 11:52 Freq: Status: Active Protocol: Document 11/12/22 09:04 LRN (Rec: 11/12/22 17:16 LRN [id number]) Functional Tests Timed Up and Go (TUG) Score 12 secs Comments Webbed chair, van type shoes. TUG Impairment Rating 20 to <40% Impaired (Score 12- 13) PT-OP-G Mobility & Gait Start: 11/06/22 11:52 Freq: Status: Active Protocol: Document 11/07/22 09:06 LRN (Rec: 11/09/22 14:43 LRN [id number]) OP Gait Assessment Gait Gait Assistance Required: Independent Able to Maintain Weight Bearing Status Yes During Gait Assistive Devices Assistive Device None Gait Deviations General Gait Pattern Antalgic Factors Limiting Gait Function Factors Limiting Gait Function Decreased Sensation,Decreased Strength,Limited Range of Motion,Pain,Poor Balance Comments Gait Comments Minimal limp noted with short step lengths. Pt wearing non supportive shoes, Van-like shoes. PT-OP-H Neuro Start: 11/06/22 11:52 Freq: Status: Active Protocol: Document 11/07/22 09:06 LRN (Rec: 11/09/22 14:43 LRN [id number]) Sensation Evaluation Gross Sensation Gross Sensation Right LE Impaired Sensation Description Numbness Comments Summary Comments R foot: decreased sensation and tissue tightness noted around well healed scars. PT-OP-J Posture/Palpation/Skin Start: 11/06/22 11:52 Freq: Status: Active Protocol: Document 11/07/22 09:06 LRN (Rec: 11/07/22 09:56 LRN [id number]) Posture Evaluation Position Standing L-Spine Posture Increased Lordosis Pelvis Posture Anteriorly Tilted Weight Distribution Balanced Knee Posture (L) Neutral,(R) Neutral Ankle/Foot Posture (L) Calcaneal Inversion,(L) Forefoot Abducted,(R) Forefoot Abducted Foot Arch (L) No Arch,(R) No Arch Comments Posture Comments Bilateral Hallux valgus Palpation Assessment Location R foot Palpation Location Anterior and medial along well healed scar Palpation Findings Edema,Soft Tissue Tightness Palpation Details Increased temp at anterior and medial slide of ankle and foot. Tender from proximal end of scar to ankle and at the medial side of foot at proximal end. Palpation of proximal scar at ankle is felt at proximal medial foot scar. R ankle Palpation Location Around malleolus Palpation Findings Edema,Tenderness Palpation Details Increased temp at anterior and medial slide of ankle and foot. Decreased STM anterior and medial along well healed scars. PT-OP-K Range of Motion Start: 11/06/22 11:52 Freq: Status: Active Protocol: Document 11/07/22 09:06 LRN (Rec: 11/07/22 09:56 [facility] [id number]) Knee Goniometric Range of Motion Knee Right Knee ROM WFL Yes Left Knee ROM WFL Yes Ankle and Foot Goniometric Range of Motion Ankle and Foot Right Active Ankle/Foot ROM WFL No Testing Position Supine Plantarflexion 65 Inversion 20 Eversion 21 Comments DF lacks 4 deg's to neutral Left Active Ankle/Foot ROM WFL Yes Testing Position Supine Dorsiflexion with Knee Extended 7 Plantarflexion 60 Inversion 30 Eversion 28 Toe Range of Motion Toe Right Great Toe MTP Flexion Active (degrees) 53 MTP Extension Active (degrees) 10 Left Great Toe MTP Flexion Active (degrees) 57 MTP Extension Active (degrees) 35 PT-OP-M Strength Start: 11/06/22 11:52 Freq: Status: Active Protocol: Document 11/07/22 09:06 LRN (Rec: 02/09/23 09:56 LRN [id number]) Knee Strength Knee Manual Muscle Testing Right Flexion (S2) 5 Normal Extension (L3) 5 Normal Left Flexion (S2) 5 Normal Extension (L3) 5 Normal Ankle/Foot Strength Ankle and Foot Manual Muscle Testing Right Plantarflexion (S1) 5 Normal Inversion 3+ Fair+ Eversion (S1) 5 Normal Left Comments All strength is 5/5. PT-OP-Q Treatments Start: 11/06/22 11:52 Freq: Status: Active Protocol: Document 11/15/22 09:10 LRN (Rec: 11/15/22 09:49 LRN [id number]) Therapeutic Exercises Supine Exercises R Big Toe ROM Supine Exercise Name R Big Toe PROM/AAROM/AROM - DF Side right Reps/Minutes 8' R Ankle ROM Supine Exercise Name R ankle PROM/AAROM/AROM - primarily DF, EV Side right Reps/Minutes 12' Standing Exercises Gastroc/Soleus stretch Standing Exercise Name Gastroc/Soleus stretch Side right Reps/Minutes 60 each Comments Extra time to determine max tolerated stretch. Manual Therapy Treatment Soft Tissue Mobilization Scar Mob Body Location R foot: Top/medial side, and w /less pressure lateral ankle Mobilization Type Myofascial Release,Sustained Pressure Body Position Supine Joint Mobilizations R ankle Joint R ankle Direction PA. AP Body Position Supine Self-Care/Home Management Treatment Education Other Education Discussed pt to wear supportive shoe wear without heel, and recommended use of shoe inserts for plantar arch support. Pt states she will look for hers. Activities Self-Care/Home Management Activities Issued & Reviewed self care edema management handout. Issued & Reviewed HEP: Ankle Gastroc and Soleus stretch. PT-OP-T Assessment and Plan Start: 11/06/22 11:52 Freq: Status: Active Protocol: Document 11/15/22 09:10 LRN (Rec: 11/15/22 09:49 LRN [id number]) Physical Therapy Assessment Goals Three Impairment Antalgic gait Impairment Decreased R ankle and Big toe mobility resulting in mild antalgic gait. Short Term Goal (STG) Pt will be educated in R ankle mobility and Bilateral big toe ext stretch. 11/12/22: Pt educated in self stretch for Big toe ext. STG Duration 11/15/22 progressed 11/12/22 Usp Goal (LTG) Pt will be able to walk without a limp, improve R ankle mobility to normal, and improve Landry Big toe extension mobility. LTG Duration 11/22/22 Two Impairment Decreased R foot scar mobility Impairment R ankle tension: medial/ lateral, along inner edge of foot length, and front of ankle. Short Term Goal (STG) Pt will be educated in self scar mobs and soft tissue mobilization of R foot for pain relief. 11/12/22: Pt I/S in R ankle self scar mobs and gentle STM of lateral ankle. 11/15/22: Pt showed good understandig of scar mobs with improved mobility of lateral R ankle. STG Duration 11/15/22 (11/15/22: MET GOAL) Usp Goal (LTG) Improve scar and soft tissue mobility to decrease ache/pain at R ankle medial, lateral, along inner edge of foot, and in front of ankle with ankle AROM. LTG Duration 11/22/22 One Impairment Pt lacks appropriate self care HEP. Short Term Goal (STG) Educate pt in supportive shoe wear or use of shoe inserts for plantar arch support. 11/15/22: Discussed supportive shoe wear without heel. Recommended lower outersole but with plantar arch support. STG Duration 11/15/22 progressed 11/15/22 Usp Goal (LTG) Pt will be independent in a self care HEP of ankle and big toe mobility and strenghtening ex's. 11/15/22: HEP: Gastroc Soleus stretch & written I/S for ankle AROM PF/DF/EV/IV. LTG Duration 11/22/22 progressed 11/15/22 Assessment Summary Assessment Pt appeared to have a good understanding of edema self care I/S. Improved scar mobility laterally with no pain on mob. Tight in anterior scar at mortise joint region, and tight on medial > lateral side scars. Good R Big toe PROM for extension. Pt R Soleus tighter than gastroc. Physical Therapy Plan Frequency and Duration Frequency of Treatment 2x/Week Plan of Care Start Date 11/07/22 Plan of Care End Date 11/22/22 Next Visit Focus/Plan Next Note Type Treatment Note Next Visit Plan Review HEP issued (gastroc/ soleus stretch). Discuss plantar arch support - shoe Superfeet. Next treatment: Educate HEP: R ankle AROM, and discuss LE/ foot lymph management. STM to well healed scars, and ?LE lymph management. Ther Ex/HEP: R ankle/Landry Big toe (ext) ROM & strengthening exercises. Balance and gait training. Modalities for pain.
--- NOTE | 2022-11-19 09:48 | PT.OTN ---
Current Diagnoses Hallux valgus (acquired), right foot (11/19/22) Hallux valgus (acquired), left foot (11/19/22) Spontaneous rupture of other tendons, unspecified lower leg (11/19/22) Physical Therapy Treatment Note PT-OP-A Visit Information Start: 11/06/22 11:52 Freq: Status: Active Protocol: Document 11/19/22 09:04 SP (Rec: 11/19/22 09:49 SP [id number]) Out-Patient Physical Therapy Visit Information Visit Information Visit Type Treatment Note Visit Note Pt's POC expires 11/22/22 will need updated POC, She changed insurance plans and will be needing pay more out of pocketcosts. Unsure how long will be able to attend PT. Visit Start Time 09:04 Visit Stop Time 09:48 Total Visit Minutes 44 Visit Number 01/08 Number of HOGSHEAD LINER Visits 1 Evaluation Information Evaluation Date 11/07/22 Precautions Precautions On antidepressant and thyroid med (hypothyroid). PT-OP-B Current Condition Start: 11/06/22 11:52 Freq: Status: Active Protocol: Document 11/07/22 09:06 LRN (Rec: 11/07/22 09:56 LRN [id number]) Current Condition History of Current Condition Onset Date 07/23/22 Current Complaints R ankle tightness and pain, limited mobility History of Current Condition R Bunion removed , then tore Tibialis anterior tendon in R ankle and had surgery . Now being referred to PT for rehab. Has been doing R ankle AROM (PF/DF/IV/EV, circles, standing gastroc stretch). Came out of boot and put back in the boot to protect the foot, then came out of boot and was told to move normal. States she has an extra length of tendon in front of ankle placed from organ donor because initially the tendon couldn't be connected. Prior Treatments and Tests gave pt ankle ex's to do daily. Future Testing and Treatments Planned F/U with DPM this month. Developmental History Developmental History R lateral scar from bunion surgery. Treatment Goals Patient/Caregiver Goals Pt goals with therapy is: Not walk with limp, and normal R ankle mobility, decrease ache/ pain at R ankle (medial lateral and tension along inner edge of foot and tension in front of ankle). Prior Functional Status Baseline Function- ADL's Independent Baseline Function- Mobility Independent Baseline Function- Gait Ambulated without assist device or limp. 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 Baseline Function- Other Normal gait ascend/desend stairs. Current Functional Impairments (Reported) Functional Limitations- ADL's Step to step descending stairs . 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 Functional Limitations- Other Pt not able to squat Personal Factors Other Personal Factors That May Effect Depression controlled by meds. Therapy/Recovery Single. Lives in double level home. PT-OP-C Subjective Start: 11/06/22 11:52 Freq: Status: Active Protocol: Document 11/19/22 09:04 SP (Rec: 11/19/22 09:49 SP [id number]) OP-PT Subjective Patient Comments Patient Comments Pt reported feels stretching and self massage helping and compliant with HEP. Pt has superfeet in shoes already with noted extra arch support for walking. PT-OP-D Balance Start: 11/06/22 11:52 Freq: Status: Active Protocol: Document 11/07/22 09:06 LRN (Rec: 11/07/22 09:56 LRN [id number]) Balance Tests Single Limb Standing Single Limb- Right 1 sec Single Limb- Left 1sec PT-OP-E Functional Tests Start: 11/06/22 11:52 Freq: Status: Active Protocol: Document 11/12/22 09:04 LRN (Rec: 11/12/22 17:16 LRN [id number]) Functional Tests Timed Up and Go (TUG) Score 12 secs Comments Webbed chair, van type shoes. TUG Impairment Rating 20 to <40% Impaired (Score 12- 13) PT-OP-G Mobility & Gait Start: 11/06/22 11:52 Freq: Status: Active Protocol: Document 11/07/22 09:06 LRN (Rec: 11/09/22 14:43 LRN [id number]) OP Gait Assessment Gait Gait Assistance Required: Independent Able to Maintain Weight Bearing Status Yes During Gait Assistive Devices Assistive Device None Gait Deviations General Gait Pattern Antalgic Factors Limiting Gait Function Factors Limiting Gait Function Decreased Sensation,Decreased Strength,Limited Range of Motion,Pain,Poor Balance Comments Gait Comments Minimal limp noted with short step lengths. Pt wearing non supportive shoes, Van-like shoes. PT-OP-H Neuro Start: 11/06/22 11:52 Freq: Status: Active Protocol: Document 11/07/22 09:06 LRN (Rec: 11/09/22 14:43 LRN [id number]) Sensation Evaluation Gross Sensation Gross Sensation Right LE Impaired Sensation Description Numbness Comments Summary Comments R foot: decreased sensation and tissue tightness noted around well healed scars. PT-OP-J Posture/Palpation/Skin Start: 11/06/22 11:52 Freq: Status: Active Protocol: Document 11/07/22 09:06 LRN (Rec: 11/07/22 09:56 LRN [id number]) Posture Evaluation Position Standing L-Spine Posture Increased Lordosis Pelvis Posture Anteriorly Tilted Weight Distribution Balanced Knee Posture (L) Neutral,(R) Neutral Ankle/Foot Posture (L) Calcaneal Inversion,(L) Forefoot Abducted,(R) Forefoot Abducted Foot Arch (L) No Arch,(R) No Arch Comments Posture Comments Bilateral Hallux valgus Palpation Assessment Location R foot Palpation Location Anterior and medial along well healed scar Palpation Findings Edema,Soft Tissue Tightness Palpation Details Increased temp at anterior and medial slide of ankle and foot. Tender from proximal end of scar to ankle and at the medial side of foot at proximal end. Palpation of proximal scar at ankle is felt at proximal medial foot scar. R ankle Palpation Location Around malleolus Palpation Findings Edema,Tenderness Palpation Details Increased temp at anterior and medial slide of ankle and foot. Decreased STM anterior and medial along well healed scars. PT-OP-K Range of Motion Start: 11/06/22 11:52 Freq: Status: Active Protocol: Document 11/07/22 09:06 LRN (Rec: 11/07/22 09:56 LRN [id number]) Knee Goniometric Range of Motion Knee Right Knee ROM WFL Yes Left Knee ROM WFL Yes Ankle and Foot Goniometric Range of Motion Ankle and Foot Right Active Ankle/Foot ROM WFL No Testing Position Supine Plantarflexion 65 Inversion 20 Eversion 21 Comments DF lacks 4 deg's to neutral Left Active Ankle/Foot ROM WFL Yes Testing Position Supine Dorsiflexion with Knee Extended 7 Plantarflexion 60 Inversion 30 Eversion 28 Toe Range of Motion Toe Right Great Toe MTP Flexion Active (degrees) 53 MTP Extension Active (degrees) 10 Left Great Toe MTP Flexion Active (degrees) 57 MTP Extension Active (degrees) 35 PT-OP-M Strength Start: 11/06/22 11:52 Freq: Status: Active Protocol: Document 11/07/22 09:06 LRN (Rec: 11/07/22 09:56 LRN [id number]) Knee Strength Knee Manual Muscle Testing Right Flexion (S2) 5 Normal Extension (L3) 5 Normal Left Flexion (S2) 5 Normal Extension (L3) 5 Normal Ankle/Foot Strength Ankle and Foot Manual Muscle Testing Right Plantarflexion (S1) 5 Normal Inversion 3+ Fair+ Eversion (S1) 5 Normal Left Comments All strength is 5/5. PT-OP-Q Treatments Start: 11/06/22 11:52 Freq: Status: Active Protocol: Document 11/19/22 09:04 SP (Rec: 11/19/22 09:49 SP [id number]) Therapeutic Exercises Sitting Exercises R 1st MTP Sitting Exercise Name AROM flexion MTP, IP Side right Resistance R foot/ankle over LLE Reps/Minutes 10SH x10 Comments AAROM and hold support ROM able R ankle, big toe Sitting Exercise Name 1. toe scrunch vs marble pic up 2. arch lift Side right Standing Exercises heel, toe walking Standing Exercise Name added to HEP-heel walking, toe walking, heel/toe walking Side bilateral Equipment Used -good response- painfree and feels little muscle effort Reps/Minutes 20 ft x 2 laps Comments cued tolerance with lift and accentuate patterning for 1st MTP ecc/ cindi Gastroc/Soleus stretch Standing Exercise Name Gastroc/Soleus stretch Side right Reps/Minutes 60 each Comments Extra time to determine max tolerated stretch. Manual Therapy Treatment Soft Tissue Mobilization plantar fascia Body Location R Mobilization Type Myofascial Release Comments manual and ed self application hands and use bouncy ball if beneficial Scar Mob Body Location R foot: Top/medial side, and w /less pressure lateral ankle Mobilization Type Myofascial Release,Sustained Pressure Body Position Sitting Joint Mobilizations R 1st MTP Joint IP, DIP Direction AP, PA, Rotation Grade II Body Position Sitting Reps/Duration 3 min total Comments manual and ed self application , R ankle over L knee PT-OP-T Assessment and Plan Start: 11/06/22 11:52 Freq: Status: Active Protocol: Document 11/19/22 09:04 SP (Rec: 11/19/22 09:49 SP [id number]) Physical Therapy Assessment Goals Three Impairment Antalgic gait Impairment Decreased R ankle and Big toe mobility resulting in mild antalgic gait. Short Term Goal (STG) Pt will be educated in R ankle mobility and Bilateral big toe ext stretch. 11/12/22: Pt educated in self stretch for Big toe ext. 11/19/22 GOAL MET: ed manual and self application good understanding and demo. STG Duration 11/15/22 GOAL MET 11/19/22 Retail Sales Teammate Goal (LTG) Pt will be able to walk without a limp, improve R ankle mobility to normal, and improve Landry Big toe extension mobility. 11/19/22: progressing: added heel and toe walking, heel toe mechanics combining. LTG Duration 11/22/22 progressing 11/19/22 Two Impairment Decreased R foot scar mobility Impairment R ankle tension: medial/ lateral, along inner edge of foot length, and front of ankle. Short Term Goal (STG) Pt will be educated in self scar mobs and soft tissue mobilization of R foot for pain relief. 11/12/22: Pt I/S in R ankle self scar mobs and gentle STM of lateral ankle. 11/15/22: Pt showed good understandig of scar mobs with improved mobility of lateral R ankle. STG Duration 11/15/22 (11/15/22: MET GOAL) Retail Sales Teammate Goal (LTG) Improve scar and soft tissue mobility to decrease ache/pain at R ankle medial, lateral, along inner edge of foot, and in front of ankle with ankle AROM. 11/19/22: good scar mobility anterior/medial foot. Progressing anterior ankle w/ STMs instructed gentle cross friction manual then self ed. LTG Duration 11/22/22 progressing 11/19/22 One Impairment Pt lacks appropriate self care HEP. Short Term Goal (STG) Educate pt in supportive shoe wear or use of shoe inserts for plantar arch support. 11/15/22: Discussed supportive shoe wear without heel. Recommended lower outersole but with plantar arch support. STG Duration 11/15/22 progressed 11/15/22 Retail Sales Teammate Goal (LTG) Pt will be independent in a self care HEP of ankle and big toe mobility and strenghtening ex's. 11/15/22: HEP: Gastroc Soleus stretch & written I/S for ankle AROM PF/DF/EV/IV. LTG Duration 11/22/22 progressed 11/15/22 Assessment Summary Assessment Pt improved manual and ed self STM application. Able to progress toe scrunches and arch lift for support stand/ gait. Initiated toe/heel walking for funcitional mobility patterning/strength with good feedback. Pt reported good understanding self STMs to continue on own. Physical Therapy Plan Frequency and Duration Frequency of Treatment 2x/Week Plan of Care Start Date 11/07/22 Plan of Care End Date 11/22/22 Therapeutic Interventions Therapeutic Interventions Balance Training,Gait Training ,Home Exercise Program,Joint Mobilizations,Manual Therapy, Neuromuscular Re-education, Self-Care/Home Management,Soft Tissue Mobilization,Taping, Therapeutic Activities, Therapeutic Exercises Modalities Cold Pack/Ice Massage Next Visit Focus/Plan Next Note Type Treatment Note Next Visit Plan See Note regarding POC date and change insurance. REcheck heel toe walking. progress SLS activities, balance hurdles, shuttle balance. POC: Review HEP issued ( gastroc/soleus stretch). Next treatment: Educate HEP: R ankle AROM, and discuss LE/ foot lymph management. STM to well healed scars, and ?LE lymph management. Ther Ex/HEP: R ankle/Landry Big toe (ext) ROM & strengthening exercises. Balance and gait training. Modalities for pain.
--- NOTE | 2022-11-26 18:04 | PT.OTN ---
Current Diagnoses Hallux valgus (acquired), right foot (11/26/22) Hallux valgus (acquired), left foot (11/26/22) Spontaneous rupture of other tendons, unspecified lower leg (11/26/22) Physical Therapy Treatment Note PT-OP-A Visit Information Start: 11/06/22 11:52 Freq: Status: Active Protocol: Document 11/26/22 09:01 LRN (Rec: 11/26/22 09:49 LRN [id number]) Out-Patient Physical Therapy Visit Information Visit Information Visit Type Progress Note Visit Start Time 09:01 Visit Stop Time 09:45 Total Visit Minutes 44 Visit Number 02/07 Evaluation Information Evaluation Date 11/07/22 Precautions Precautions On antidepressant and thyroid med (hypothyroid). PT-OP-B Current Condition Start: 11/06/22 11:52 Freq: Status: Active Protocol: Document 11/07/22 09:06 LRN (Rec: 11/07/22 09:56 LRN [id number]) Current Condition History of Current Condition Onset Date 07/23/22 Current Complaints R ankle tightness and pain, limited mobility History of Current Condition R Bunion removed , then tore Tibialis anterior tendon in R ankle and had surgery . Now being referred to PT for rehab. Has been doing R ankle AROM (PF/DF/IV/EV, circles, standing gastroc stretch). Came out of boot and put back in the boot to protect the foot, then came out of boot and was told to move normal. States she has an extra length of tendon in front of ankle placed from organ donor because initially the tendon couldn't be connected. Prior Treatments and Tests gave pt ankle ex's to do daily. Future Testing and Treatments Planned F/U with DPM this month. Developmental History Developmental History R lateral scar from bunion surgery. Treatment Goals Patient/Caregiver Goals Pt goals with therapy is: Not walk with limp, and normal R ankle mobility, decrease ache/ pain at R ankle (medial lateral and tension along inner edge of foot and tension in front of ankle). Prior Functional Status Baseline Function- ADL's Independent Baseline Function- Mobility Independent Baseline Function- Gait Ambulated without assist device or limp. 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 Baseline Function- Other Normal gait ascend/desend stairs. Current Functional Impairments (Reported) Functional Limitations- ADL's Step to step descending stairs . 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 Functional Limitations- Other Pt not able to squat Personal Factors Other Personal Factors That May Effect Depression controlled by meds. Therapy/Recovery Single. Lives in double level home. PT-OP-C Subjective Start: 11/06/22 11:52 Freq: Status: Active Protocol: Document 11/26/22 09:01 LRN (Rec: 11/26/22 09:49 LRN [id number]) OP-PT Subjective Patient Comments Patient Comments Feeling stiff in the R ankle. Superfeet helps foot keep supported, have had a long time. PT-OP-D Balance Start: 11/06/22 11:52 Freq: Status: Active Protocol: Document 11/07/22 09:06 LRN (Rec: 11/07/22 09:56 LRN [id number]) Balance Tests Single Limb Standing Single Limb- Right 1 sec Single Limb- Left 1sec PT-OP-E Functional Tests Start: 11/06/22 11:52 Freq: Status: Active Protocol: Document 11/12/22 09:04 LRN (Rec: 11/12/22 17:16 LRN [id number]) Functional Tests Timed Up and Go (TUG) Score 12 secs Comments Webbed chair, van type shoes. TUG Impairment Rating 20 to <40% Impaired (Score 12- 13) PT-OP-G Mobility & Gait Start: 11/06/22 11:52 Freq: Status: Active Protocol: Document 11/07/22 09:06 LRN (Rec: 11/09/22 14:43 LRN [id number]) OP Gait Assessment Gait Gait Assistance Required: Independent Able to Maintain Weight Bearing Status Yes During Gait Assistive Devices Assistive Device None Gait Deviations General Gait Pattern Antalgic Factors Limiting Gait Function Factors Limiting Gait Function Decreased Sensation,Decreased Strength,Limited Range of Motion,Pain,Poor Balance Comments Gait Comments Minimal limp noted with short step lengths. Pt wearing non supportive shoes, Van-like shoes. PT-OP-H Neuro Start: 11/06/22 11:52 Freq: Status: Active Protocol: Document 11/07/22 09:06 LRN (Rec: 11/09/22 14:43 N [id number]) Sensation Evaluation Gross Sensation Gross Sensation Right LE Impaired Sensation Description Numbness Comments Summary Comments R foot: decreased sensation and tissue tightness noted around well healed scars. PT-OP-J Posture/Palpation/Skin Start: 11/06/22 11:52 Freq: Status: Active Protocol: Document 11/07/22 09:06 LRN (Rec: 11/07/22 09:56 LRN [id number]) Posture Evaluation Position Standing L-Spine Posture Increased Lordosis Pelvis Posture Anteriorly Tilted Weight Distribution Balanced Knee Posture (L) Neutral,(R) Neutral Ankle/Foot Posture (L) Calcaneal Inversion,(L) Forefoot Abducted,(R) Forefoot Abducted Foot Arch (L) No Arch,(R) No Arch Comments Posture Comments Bilateral Hallux valgus Palpation Assessment Location R foot Palpation Location Anterior and medial along well healed scar Palpation Findings Edema,Soft Tissue Tightness Palpation Details Increased temp at anterior and medial slide of ankle and foot. Tender from proximal end of scar to ankle and at the medial side of foot at proximal end. Palpation of proximal scar at ankle is felt at proximal medial foot scar. R ankle Palpation Location Around malleolus Palpation Findings Edema,Tenderness Palpation Details Increased temp at anterior and medial slide of ankle and foot. Decreased STM anterior and medial along well healed scars. PT-OP-K Range of Motion Start: 11/06/22 11:52 Freq: Status: Active Protocol: Document 11/07/22 09:06 LRN (Rec: 11/07/22 09:56 LR [id number]) Knee Goniometric Range of Motion Knee Right Knee ROM WFL Yes Left Knee ROM WFL Yes Ankle and Foot Goniometric Range of Motion Ankle and Foot Right Active Ankle/Foot ROM WFL No Testing Position Supine Plantarflexion 65 Inversion 20 Eversion 21 Comments DF lacks 4 deg's to neutral Left Active Ankle/Foot ROM WFL Yes Testing Position Supine Dorsiflexion with Knee Extended 7 Plantarflexion 60 Inversion 30 Eversion 28 Toe Range of Motion Toe Right Great Toe MTP Flexion Active (degrees) 53 MTP Extension Active (degrees) 10 Left Great Toe MTP Flexion Active (degrees) 57 MTP Extension Active (degrees) 35 PT-OP-M Strength Start: 11/06/22 11:52 Freq: Status: Active Protocol: Document 11/07/22 09:06 LRN (Rec: 11/07/22 09:56 LRN [id number]) Knee Strength Knee Manual Muscle Testing Right Flexion (S2) 5 Normal Extension (L3) 5 Normal Left Flexion (S2) 5 Normal Extension (L3) 5 Normal Ankle/Foot Strength Ankle and Foot Manual Muscle Testing Right Plantarflexion (S1) 5 Normal Inversion 3+ Fair+ Eversion (S1) 5 Normal Left Comments All strength is 5/5. PT-OP-Q Treatments Start: 11/06/22 11:52 Freq: Status: Active Protocol: Document 11/26/22 09:01 LRN (Rec: 11/26/22 09:49 LRN [id number]) Therapeutic Exercises Supine Exercises R Ankle ROM Supine Exercise Name R ankle AROM Side right Reps/Minutes 2' Comments ROM taken Gait Training Gait Activity Gait w/1 rail Description Gait w/1 rail support: WBg ft in neutral, heel strike> lateral foot>Big toe Device Used 1 rail Level of Assistance Indep Surface Level, firm Distance/Duration 15' Treatment Focus Proper foot position and proper changes in WBing of L Foot Comments Pt has poor support to ankles although pt wearing Superfeet. Pt wearing slipper type shoes. Manual Therapy Treatment Soft Tissue Mobilization Scar Mob Body Location R foot: lateral ankle with/ witout ankle movement Mobilization Type Myofascial Release,Sustained Pressure Body Position Sitting Taping R lateral ankle Body Location R lateral malleolus Treatment Focus Decrease edema Type of Tape Kinesio Tape Skin Inspection Good Comments Pt I/S in safe/proper removal in 5 days. Neuro Re-Education Treatment Balance Activities SLS Details SLS on BLue foam and on solid Reps/Duration 2' on firm level, 1'x 6 on blue foam Comments SLS on firm level: max 2-2.5 secs bilaterally PT-OP-T Assessment and Plan Start: 11/06/22 11:52 Freq: Status: Active Protocol: Document 11/26/22 09:01 LRN (Rec: 11/26/22 09:49 [facility] [id number]) Physical Therapy Assessment Rehab Potential Rehabilitation Potential Excellent Evaluation Complexity Number of Personal Factors/Comorbidities 1-2 Number of Body Systems Impaired 4 or More Clinical Presentation at Evaluation Evolving Impairments Impairments Activity Tolerance,Balance, Functional Mobility,Gait,Pain, ROM,Soft Tissue Mobility, Strength Goals Three Impairment Antalgic gait Impairment Decreased R ankle and Big toe mobility resulting in mild antalgic gait. Short Term Goal (STG) Pt will be educated in R ankle mobility and Bilateral big toe ext stretch. 11/12/22: Pt educated in self stretch for Big toe ext. 11/19/22 GOAL MET: ed manual and self application good understanding and demo. STG Duration 11/15/22 (GOAL MET 11/19/22) Architectural Administrative Assistant Goal (LTG) Pt will be able to walk without a limp, improve R ankle mobility to normal, and improve Landry Big toe extension mobility. 11/19/22: progressing: added heel and toe walking, heel toe mechanics combining. 11/26/22: Mild antalgic limp, R forefoot AB, decr'd WBing RLE. LTG Duration 12/27/22 progressing Two Impairment Decreased R foot scar mobility Impairment R ankle tension: medial/ lateral, along inner edge of foot length, and front of ankle. Short Term Goal (STG) Pt will be educated in self scar mobs and soft tissue mobilization of R foot for pain relief. 11/12/22: Pt I/S in R ankle self scar mobs and gentle STM of lateral ankle. 11/15/22: Pt showed good understandig of scar mobs with improved mobility of lateral R ankle. STG Duration 11/15/22 (11/15/22: MET GOAL) Alf Goal (LTG) Improve scar and soft tissue mobility to decrease ache/pain at R ankle medial, lateral, along inner edge of foot, and in front of ankle with ankle AROM. 11/19/22: good scar mobility anterior/medial foot. Progressing anterior ankle w/ STMs instructed gentle cross friction manual then self ed. 11/26/22: Tender at R foot lateral scar with decreased longitudinal mobility. Anterior and medial scar mobility is good. LTG Duration 12/27/22 progressing One Impairment Pt lacks appropriate self care HEP. Short Term Goal (STG) Educate pt in supportive shoe wear or use of shoe inserts for plantar arch support. 11/15/22: Discussed supportive shoe wear without heel. Recommended lower outersole but with plantar arch support. 11/26/22: Pt educated in proper shoe wear to provide the proper support while wearing her Superfeet supportive plantar arch supports. STG Duration 11/15/22 (11/26/22: MET GOAL) Architectural Administrative Assistant Goal (LTG) Pt will be independent in a self care HEP of ankle and big toe mobility and strenghtening ex's. 11/15/22: HEP: Gastroc Soleus stretch & written I/S for ankle AROM PF/DF/EV/IV. 11/26/22: Pt started on SLS balance training. LTG Duration 12/27/22 progressed 11/26/22 Assessment Summary Assessment Pt is s/p R tibialis tendon repair 07/23/22. Her R ankle mobility has improved, although not normal, and her R foot scars are more mobile with pain only in the scar on the lateral side of the foot. Today she presents with mild antalgic gait due to decreased R ankle ROM and positioning of her feet in AB with valgus at her ankles due to poor supportive foot wear on the medial side of the foot ( slipper type shoes). She had visible moderate swelling on the lateral malleolus that the pt did not complain of pain, just visibly swollen. The pt would benefit from continued skilled physical therapy to increase her R ankle AROM mobility to normal and to improve her strength and standing balance for improved gait mechanics. The pt has changed her insurance provider and is concerned of costs associated with therapy; therefore she may choose to be discharged from physical therapy after contacting her insurance provider. The pt does have a home program to work on ROM and balance, but has not been advanced in her strengthening due to pain. If the pt chooses to return she will be seen intermittently for progression on self care. Physical Therapy Plan Frequency and Duration Frequency of Treatment 1x/Week Plan of Care Start Date 11/26/22 Plan of Care End Date 12/27/22 Therapeutic Interventions Therapeutic Interventions Balance Training,Gait Training ,Home Exercise Program,Joint Mobilizations,Manual Therapy, Neuromuscular Re-education, Self-Care/Home Management,Soft Tissue Mobilization,Taping, Therapeutic Exercises Modalities Cold Pack/Ice Massage Next Visit Focus/Plan Next Note Type Treatment Note Next Visit Plan Next appt: Assess reponse to k-tape for lateral scar mobility increase. Discuss LE/foot lymph management. Add R ankle strengthening for HEP. Ther Ex/HEP: R ankle/Landry Big toe (ext) ROM & strengthening exercises. Gait training. SLS activities , balance hurdles, shuttle balance. STM to well healed lateral R foot scar. Modalities for pain.
--- NOTE | 2022-11-26 18:13 | PT-OP ANOTE ---
Addendum: Late entry: R ankle AROM (deg's): PF 58, DF 3, EV 25 (18 with small flexible goniometer), IV 24. R medial/lateral Foot pain rated 3/10. LEFS score is 53/80 (20-39% impaired, score 48-62).
--- NOTE | 2022-12-13 16:34 | PT.OTN ---
Current Diagnoses Hallux valgus (acquired), right foot (12/13/22) Hallux valgus (acquired), left foot (12/13/22) Spontaneous rupture of other tendons, unspecified lower leg (12/13/22) Physical Therapy Treatment Note PT-OP-A Visit Information Start: 11/06/22 11:52 Freq: Status: Active Protocol: Document 12/13/22 09:07 LRN (Rec: 12/13/22 09:49 LRN [id number]) Out-Patient Physical Therapy Visit Information Visit Information Visit Type Treatment Note Visit Start Time 09:07 Visit Stop Time 09:48 Total Visit Minutes 41 Visit Number 03/10 Evaluation Information Evaluation Date 11/07/22 Precautions Precautions On antidepressant and thyroid med (hypothyroid). PT-OP-B Current Condition Start: 11/06/22 11:52 Freq: Status: Active Protocol: Document 11/07/22 09:06 LRN (Rec: 11/07/22 09:56 LRN [id number]) Current Condition History of Current Condition Onset Date 07/23/22 Current Complaints R ankle tightness and pain, limited mobility History of Current Condition R Bunion removed , then tore Tibialis anterior tendon in R ankle and had surgery . Now being referred to PT for rehab. Has been doing R ankle AROM (PF/DF/IV/EV, circles, standing gastroc stretch). Came out of boot and put back in the boot to protect the foot, then came out of boot and was told to move normal. States she has an extra length of tendon in front of ankle placed from organ donor because initially the tendon couldn't be connected. Prior Treatments and Tests gave pt ankle ex's to do daily. Future Testing and Treatments Planned F/U with [facility] this month. Developmental History Developmental History R lateral scar from bunion surgery. Treatment Goals Patient/Caregiver Goals Pt goals with therapy is: Not walk with limp, and normal R ankle mobility, decrease ache/ pain at R ankle (medial lateral and tension along inner edge of foot and tension in front of ankle). Prior Functional Status Baseline Function- ADL's Independent Baseline Function- Mobility Independent Baseline Function- Gait Ambulated without assist device or limp. 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 Baseline Function- Other Normal gait ascend/desend stairs. Current Functional Impairments (Reported) Functional Limitations- ADL's Step to step descending stairs . 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 Functional Limitations- Other Pt not able to squat Personal Factors Other Personal Factors That May Effect Depression controlled by meds. Therapy/Recovery Single. Lives in double level home. PT-OP-C Subjective Start: 11/06/22 11:52 Freq: Status: Active Protocol: Document 12/13/22 09:07 LRN (Rec: 12/13/22 09:49 LRN [id number]) OP-PT Subjective Patient Comments Patient Comments States she feels she has a little limp, but she feels she is doing good. She has been working on her gait. PT-OP-D Balance Start: 11/06/22 11:52 Freq: Status: Active Protocol: Document 11/07/22 09:06 LRN (Rec: 11/07/22 09:56 LRN [id number]) Balance Tests Single Limb Standing Single Limb- Right 1 sec Single Limb- Left 1sec PT-OP-E Functional Tests Start: 11/06/22 11:52 Freq: Status: Active Protocol: Document 11/12/22 09:04 LRN (Rec: 11/12/22 17:16 LRN [id number]) Functional Tests Timed Up and Go (TUG) Score 12 secs Comments Webbed chair, van type shoes. TUG Impairment Rating 20 to <40% Impaired (Score 12- 13) PT-OP-G Mobility & Gait Start: 11/06/22 11:52 Freq: Status: Active Protocol: Document 11/07/22 09:06 LRN (Rec: 11/09/22 14:43 LRN [id number]) OP Gait Assessment Gait Gait Assistance Required: Independent Able to Maintain Weight Bearing Status Yes During Gait Assistive Devices Assistive Device None Gait Deviations General Gait Pattern Antalgic Factors Limiting Gait Function Factors Limiting Gait Function Decreased Sensation,Decreased Strength,Limited Range of Motion,Pain,Poor Balance Comments Gait Comments Minimal limp noted with short step lengths. Pt wearing non supportive shoes, Van-like shoes. PT-OP-H Neuro Start: 11/06/22 11:52 Freq: Status: Active Protocol: Document 11/07/22 09:06 LRN (Rec: 11/09/22 14:43 LRN [id number]) Sensation Evaluation Gross Sensation Gross Sensation Right LE Impaired Sensation Description Numbness Comments Summary Comments R foot: decreased sensation and tissue tightness noted around well healed scars. PT-OP-J Posture/Palpation/Skin Start: 11/06/22 11:52 Freq: Status: Active Protocol: Document 11/07/22 09:06 LRN (Rec: 11/07/22 09:56 LR [id number]) Posture Evaluation Position Standing L-Spine Posture Increased Lordosis Pelvis Posture Anteriorly Tilted Weight Distribution Balanced Knee Posture (L) Neutral,(R) Neutral Ankle/Foot Posture (L) Calcaneal Inversion,(L) Forefoot Abducted,(R) Forefoot Abducted Foot Arch (L) No Arch,(R) No Arch Comments Posture Comments Bilateral Hallux valgus Palpation Assessment Location R foot Palpation Location Anterior and medial along well healed scar Palpation Findings Edema,Soft Tissue Tightness Palpation Details Increased temp at anterior and medial slide of ankle and foot. Tender from proximal end of scar to ankle and at the medial side of foot at proximal end. Palpation of proximal scar at ankle is felt at proximal medial foot scar. R ankle Palpation Location Around malleolus Palpation Findings Edema,Tenderness Palpation Details Increased temp at anterior and medial slide of ankle and foot. Decreased STM anterior and medial along well healed scars. PT-OP-K Range of Motion Start: 11/06/22 11:52 Freq: Status: Active Protocol: Document 11/07/22 09:06 LRN (Rec: 11/07/22 09:56 LR [id number]) Knee Goniometric Range of Motion Knee Right Knee ROM WFL Yes Left Knee ROM WFL Yes Ankle and Foot Goniometric Range of Motion Ankle and Foot Right Active Ankle/Foot ROM WFL No Testing Position Supine Plantarflexion 65 Inversion 20 Eversion 21 Comments DF lacks 4 deg's to neutral Left Active Ankle/Foot ROM WFL Yes Testing Position Supine Dorsiflexion with Knee Extended 7 Plantarflexion 60 Inversion 30 Eversion 28 Toe Range of Motion Toe Right Great Toe MTP Flexion Active (degrees) 53 MTP Extension Active (degrees) 10 Left Great Toe MTP Flexion Active (degrees) 57 MTP Extension Active (degrees) 35 PT-OP-M Strength Start: 11/06/22 11:52 Freq: Status: Active Protocol: Document 11/07/22 09:06 LRN (Rec: 11/07/22 09:56 LRN [id number]) Knee Strength Knee Manual Muscle Testing Right Flexion (S2) 5 Normal Extension (L3) 5 Normal Left Flexion (S2) 5 Normal Extension (L3) 5 Normal Ankle/Foot Strength Ankle and Foot Manual Muscle Testing Right Plantarflexion (S1) 5 Normal Inversion 3+ Fair+ Eversion (S1) 5 Normal Left Comments All strength is 5/5. PT-OP-Q Treatments Start: 11/06/22 11:52 Freq: Status: Active Protocol: Document 12/13/22 09:07 LRN (Rec: 12/13/22 09:49 LRN [id number]) Therapeutic Exercises Sitting Exercises R ankle TB strengthening Sitting Exercise Name R ankle DF, EV, IV Side right Equipment Used Lev 2 TB Reps/Minutes 15x Comments Extra time needed to determine proper positioning and tolerated resistance Gait Training Gait Activity Gait w/o limp Description Gait with R hip shift over R foot and stable core Device Used Railing and w/o railing Level of Assistance SBA>Nestor Surface Level Distance/Duration 7 min Treatment Focus Proper gait pattern w/o limp, proper WS and core stability. Weight shift Description Wgt shift onto and off of R LE Device Used Railing and w/o railing Level of Assistance SBA>Nestor Surface Level Distance/Duration 13 min Treatment Focus Weight shift (WS), Core stable Manual Therapy Treatment Soft Tissue Mobilization plantar fascia Body Location R Mobilization Type Myofascial Release Comments manual and ed self application hands and use bouncy ball if beneficial Scar Mob Body Location R foot: lateral ankle with/ witout ankle movement Mobilization Type Myofascial Release,Sustained Pressure Body Position Sitting Taping R lateral ankle Body Location R lateral malleolus at anteroinferior ankle. Treatment Focus Decrease edema Type of Tape Kinesio Tape Skin Inspection Good Comments Pt I/S in safe/proper removal in 5 days. Self-Care/Home Management Treatment Education Patient Education Home Exercise Program Activities Self-Care/Home Management Activities Issued & reviewed HEP of ankle TB strengthening exercises. PT-OP-T Assessment and Plan Start: 11/06/22 11:52 Freq: Status: Active Protocol: Document 12/13/22 09:07 LRN (Rec: 12/13/22 09:49 LRN [id number]) Physical Therapy Assessment Goals Three Impairment Antalgic gait Impairment Decreased R ankle and Big toe mobility resulting in mild antalgic gait. Short Term Goal (STG) Pt will be educated in R ankle mobility and Bilateral big toe ext stretch. 11/12/22: Pt educated in self stretch for Big toe ext. 11/19/22 GOAL MET: ed manual and self application good understanding and demo. STG Duration 11/15/22 (GOAL MET 11/19/22) Usp Goal (LTG) Pt will be able to walk without a limp, improve R ankle mobility to normal, and improve Landry Big toe extension mobility. 11/19/22: progressing: added heel and toe walking, heel toe mechanics combining. 11/26/22: Mild antalgic limp, R forefoot AB, decr'd WBing RLE. LTG Duration 02/24/23 progressing Two Impairment Decreased R foot scar mobility Impairment R ankle tension: medial/ lateral, along inner edge of foot length, and front of ankle. Short Term Goal (STG) Pt will be educated in self scar mobs and soft tissue mobilization of R foot for pain relief. 11/12/22: Pt I/S in R ankle self scar mobs and gentle STM of lateral ankle. 11/15/22: Pt showed good understandig of scar mobs with improved mobility of lateral R ankle. STG Duration 11/15/22 (11/15/22: MET GOAL) Usp Goal (LTG) Improve scar and soft tissue mobility to decrease ache/pain at R ankle medial, lateral, along inner edge of foot, and in front of ankle with ankle AROM. 11/19/22: good scar mobility anterior/medial foot. Progressing anterior ankle w/ STMs instructed gentle cross friction manual then self ed. 11/26/22: Tender at R foot lateral scar with decreased longitudinal mobility. Anterior and medial scar mobility is good. 12/13/22: Pain reported only at R inner edge of foot with gait. LTG Duration 02/24/23 progressing One Impairment Pt lacks appropriate self care HEP. Short Term Goal (STG) Educate pt in supportive shoe wear or use of shoe inserts for plantar arch support. 11/15/22: Discussed supportive shoe wear without heel. Recommended lower outersole but with plantar arch support. 11/26/22: Pt educated in proper shoe wear to provide the proper support while wearing her Superfeet supportive plantar arch supports. STG Duration 11/15/22 (11/26/22: MET GOAL) Usp Goal (LTG) Pt will be independent in a self care HEP of ankle and big toe mobility and strenghtening ex's. 11/15/22: HEP: Gastroc Soleus stretch & written I/S for ankle AROM PF/DF/EV/IV. 11/26/22: Pt started on SLS balance training. 12/13/22: HEP: Ankle strengthening with TBand. TBand issued LTG Duration 02/24/23 progressed 12/13/22 Assessment Summary Assessment Pt is s/p R tibialis tendon repair 07/23/22. Pt has slight limp with gait due to lack of R weight shift of hip and lack of COG over R foot. R ankle doesn't have pain, pt just feels unsteady. Pt gait much improved after training, but reverts back after a few steps; therefore the pt needs further gait training at home. Pt has swelling at anteroinferior R lateral malleolus, but no signs of LE lyphadema. Pain c/o along R inner edge of foot with gait, probably fascial tension related, possible neural related. Physical Therapy Plan Frequency and Duration Frequency of Treatment 1x/Week Plan of Care Start Date 11/26/22 Plan of Care End Date 02/24/23 Next Visit Focus/Plan Next Note Type Treatment Note Next Visit Plan Next: Assess gait and R inner foot pain (?neural), assess HEP issued: R ankle strengthening. Ther Ex/HEP: Landry Big toe (ext) /ankle ROM & Landry Big toe strengthening exercises. SLS activities, balance hurdles, shuttle balance. Modalities for pain as needed.
--- NOTE | 2022-12-17 09:22 | PT-OP ANOTE ---
Per phone, pt thought she was every other week treatments. Office staff report she had accepted appt today on [employer] system. Informed pt that she will need to reschedule her next visit and to call to reschedule appts she has to every other week.
--- NOTE | 2022-12-26 09:00 | PT.OTN ---
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 PT-OP-B Current Condition Start: 11/06/22 11:52 Freq: Status: Active Protocol: Document 11/07/22 09:06 LRN (Rec: 11/07/22 09:56 LRN [id number]) Current Condition History of Current Condition Onset Date 07/23/22 Current Complaints R ankle tightness and pain, limited mobility History of Current Condition R Bunion removed , then tore Tibialis anterior tendon in R ankle and had surgery . Now being referred to PT for rehab. Has been doing R ankle AROM (PF/DF/IV/EV, circles, standing gastroc stretch). Came out of boot and put back in the boot to protect the foot, then came out of boot and was told to move normal. States she has an extra length of tendon in front of ankle placed from organ donor because initially the tendon couldn't be connected. Prior Treatments and Tests gave pt ankle ex's to do daily. Future Testing and Treatments Planned F/U with DPM this month. Developmental History Developmental History R lateral scar from bunion surgery. Treatment Goals Patient/Caregiver Goals Pt goals with therapy is: Not walk with limp, and normal R ankle mobility, decrease ache/ pain at R ankle (medial lateral and tension along inner edge of foot and tension in front of ankle). Prior Functional Status Baseline Function- ADL's Independent Baseline Function- Mobility Independent Baseline Function- Gait Ambulated without assist device or limp. 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 Baseline Function- Other Normal gait ascend/desend stairs. Current Functional Impairments (Reported) Functional Limitations- ADL's Step to step descending stairs . 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 Functional Limitations- Other Pt not able to squat Personal Factors Other Personal Factors That May Effect Depression controlled by meds. Therapy/Recovery Single. Lives in double level home. PT-OP-C Subjective Start: 11/06/22 11:52 Freq: Status: Active Protocol: Document 12/26/22 08:18 SP (Rec: 12/26/22 09:03 SP [id number]) OP-PT Subjective Patient Comments Patient Comments Pt reported has been compliant with TB ankle HEP and trying walk with hip over ankle and toe in when push off for normal walking. PT-OP-D Balance Start: 11/06/22 11:52 Freq: Status: Active Protocol: Document 11/07/22 09:06 LRN (Rec: 11/07/22 09:56 LRN [id number]) Balance Tests Single Limb Standing Single Limb- Right 1 sec Single Limb- Left 1sec PT-OP-E Functional Tests Start: 11/06/22 11:52 Freq: Status: Active Protocol: Document 11/12/22 09:04 LRN (Rec: 11/12/22 17:16 LRN [id number]) Functional Tests Timed Up and Go (TUG) Score 12 secs Comments Webbed chair, van type shoes. TUG Impairment Rating 20 to <40% Impaired (Score 12- 13) PT-OP-G Mobility & Gait Start: 11/06/22 11:52 Freq: Status: Active Protocol: Document 11/07/22 09:06 LRN (Rec: 11/09/22 14:43 LRN [id number]) OP Gait Assessment Gait Gait Assistance Required: Independent Able to Maintain Weight Bearing Status Yes During Gait Assistive Devices Assistive Device None Gait Deviations General Gait Pattern Antalgic Factors Limiting Gait Function Factors Limiting Gait Function Decreased Sensation,Decreased Strength,Limited Range of Motion,Pain,Poor Balance Comments Gait Comments Minimal limp noted with short step lengths. Pt wearing non supportive shoes, Van-like shoes. PT-OP-H Neuro Start: 11/06/22 11:52 Freq: Status: Active Protocol: Document 11/07/22 09:06 LRN (Rec: 11/09/22 14:43 LRN [id number]) Sensation Evaluation Gross Sensation Gross Sensation Right LE Impaired Sensation Description Numbness Comments Summary Comments R foot: decreased sensation and tissue tightness noted around well healed scars. PT-OP-J Posture/Palpation/Skin Start: 11/06/22 11:52 Freq: Status: Active Protocol: Document 11/07/22 09:06 LRN (Rec: 11/07/22 09:56 LR [id number]) Posture Evaluation Position Standing L-Spine Posture Increased Lordosis Pelvis Posture Anteriorly Tilted Weight Distribution Balanced Knee Posture (L) Neutral,(R) Neutral Ankle/Foot Posture (L) Calcaneal Inversion,(L) Forefoot Abducted,(R) Forefoot Abducted Foot Arch (L) No Arch,(R) No Arch Comments Posture Comments Bilateral Hallux valgus Palpation Assessment Location R foot Palpation Location Anterior and medial along well healed scar Palpation Findings Edema,Soft Tissue Tightness Palpation Details Increased temp at anterior and medial slide of ankle and foot. Tender from proximal end of scar to ankle and at the medial side of foot at proximal end. Palpation of proximal scar at ankle is felt at proximal medial foot scar. R ankle Palpation Location Around malleolus Palpation Findings Edema,Tenderness Palpation Details Increased temp at anterior and medial slide of ankle and foot. Decreased STM anterior and medial along well healed scars. PT-OP-K Range of Motion Start: 11/06/22 11:52 Freq: Status: Active Protocol: Document 11/07/22 09:06 LRN (Rec: 11/07/22 09:56 LR [id number]) Knee Goniometric Range of Motion Knee Right Knee ROM WFL Yes Left Knee ROM WFL Yes Ankle and Foot Goniometric Range of Motion Ankle and Foot Right Active Ankle/Foot ROM WFL No Testing Position Supine Plantarflexion 65 Inversion 20 Eversion 21 Comments DF lacks 4 deg's to neutral Left Active Ankle/Foot ROM WFL Yes Testing Position Supine Dorsiflexion with Knee Extended 7 Plantarflexion 60 Inversion 30 Eversion 28 Toe Range of Motion Toe Right Great Toe MTP Flexion Active (degrees) 53 MTP Extension Active (degrees) 10 Left Great Toe MTP Flexion Active (degrees) 57 MTP Extension Active (degrees) 35 PT-OP-M Strength Start: 11/06/22 11:52 Freq: Status: Active Protocol: Document 11/07/22 09:06 LRN (Rec: 11/07/22 09:56 LRN [id number]) Knee Strength Knee Manual Muscle Testing Right Flexion (S2) 5 Normal Extension (L3) 5 Normal Left Flexion (S2) 5 Normal Extension (L3) 5 Normal Ankle/Foot Strength Ankle and Foot Manual Muscle Testing Right Plantarflexion (S1) 5 Normal Inversion 3+ Fair+ Eversion (S1) 5 Normal Left Comments All strength is 5/5. PT-OP-Q Treatments Start: 11/06/22 11:52 Freq: Status: Active Protocol: Document 12/26/22 08:18 SP (Rec: 12/26/22 09:03 SP [id number]) Therapeutic Exercises Sitting Exercises R ankle TB strengthening Sitting Exercise Name R ankle DF, EV, IV Side right Resistance (IV LLE behind RLE best for pt ) Equipment Used Lev 2 TB Reps/Minutes 10 reps 3x/day (pt finds best and not sore) Comments cued eccentric control start position R 1st MTP Sitting Exercise Name extension Side right Resistance AROM Equipment Used HEP reviewed (declined HO) Reps/Minutes 10SH x10 Comments A R ankle, big toe Sitting Exercise Name 1. toe scrunch vs marble pic up 2. arch lift 3. toe abd Side right Resistance HEP reviewed (declined HO) Reps/Minutes 10 reps each Comments good form Standing Exercises arch lift Standing Exercise Name initiated in PT Reps/Minutes x10 reps Comments good form heel, toe walking Standing Exercise Name reviewed HEP-heel walking, toe walking, heel/toe walking Side bilateral Equipment Used -good response- painfree and feels little muscle effort Reps/Minutes 20 ft x 4 laps Comments cued tall posture, core/ scap complex fac, wt shift over stance LE- impr Manual Therapy Treatment Soft Tissue Mobilization plantar fascia Body Location R Mobilization Type Myofascial Release,Sustained Pressure,Other Comments manual and ed self application hands and use bouncy ball if beneficial, and sustained pressure MWM calf and anklepumps Scar Mob Body Location R foot: lateral ankle with/ witout ankle movement Mobilization Type Myofascial Release,Sustained Pressure Body Position Sitting Comments manual and ed self application Joint Mobilizations R 1st MTP Joint IP, DIP Direction AP, PA, Rotation Grade II Body Position Sitting Reps/Duration 3 min total Comments manual and ed self application , R ankle over L knee Neuro Re-Education Treatment Balance Activities hurdles Equipment 4 hurdles f/b/lateral, added 4 foam pads fwd 4laps Comments improved wb on stance LE post cues book on head tall posturing, core and scap fac SLS Details SLS on BLue foam and on solid Reps/Duration 2' on firm level, 1'x 6 on blue foam Comments SLS on firm level: R 6, 13 sec L 19 sec improve post ed: book on head tall posturing, core and scap fac PT-OP-T Assessment and Plan Start: 11/06/22 11:52 Freq: Status: Active Protocol: Document 12/26/22 08:18 SP (Rec: 12/26/22 09:03 SP [id number]) Physical Therapy Assessment Goals Three Impairment Antalgic gait Impairment Decreased R ankle and Big toe mobility resulting in mild antalgic gait. Short Term Goal (STG) Pt will be educated in R ankle mobility and Bilateral big toe ext stretch. 11/12/22: Pt educated in self stretch for Big toe ext. 11/19/22 GOAL MET: ed manual and self application good understanding and demo. STG Duration 11/15/22 (GOAL MET 11/19/22) [facility] Goal (LTG) Pt will be able to walk without a limp, improve R ankle mobility to normal, and improve Landry Big toe extension mobility. 11/19/22: progressing: added heel and toe walking, heel toe mechanics combining. 11/26/22: Mild antalgic limp, R forefoot AB, decr'd WBing RLE. LTG Duration 02/24/23 progressing Two Impairment Decreased R foot scar mobility Impairment R ankle tension: medial/ lateral, along inner edge of foot length, and front of ankle. Short Term Goal (STG) Pt will be educated in self scar mobs and soft tissue mobilization of R foot for pain relief. 11/12/22: Pt I/S in R ankle self scar mobs and gentle STM of lateral ankle. 11/15/22: Pt showed good understandig of scar mobs with improved mobility of lateral R ankle. 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 11/19/22: good scar mobility anterior/medial foot. Progressing anterior ankle w/ STMs instructed gentle cross friction manual then self ed. 11/26/22: Tender at R foot lateral scar with decreased longitudinal mobility. Anterior and medial scar mobility is good. 12/13/22: Pain reported only at R inner edge of foot with gait. LTG Duration 02/24/23 progressing One Impairment Pt lacks appropriate self care HEP. Short Term Goal (STG) Educate pt in supportive shoe wear or use of shoe inserts for plantar arch support. 11/15/22: Discussed supportive shoe wear without heel. Recommended lower outersole but with plantar arch support. 11/26/22: Pt educated in proper shoe wear to provide the proper support while wearing her Superfeet supportive plantar arch supports. STG Duration 11/15/22 (11/26/22: MET GOAL) [facility] Goal (LTG) Pt will be independent in a self care HEP of ankle and big toe mobility and strenghtening ex's. 11/15/22: HEP: Gastroc Soleus stretch & written I/S for ankle AROM PF/DF/EV/IV. 11/26/22: Pt started on SLS balance training. 12/13/22: HEP: Ankle strengthening with TBand. TBand issued LTG Duration 02/24/23 progressed 12/13/22 Assessment Summary Assessment Pt improved WB into SLS and SLS stance time increased by end tx RLE 13 sec LLE 19 sec. Able to lift R 1st MTP into extension with reps AROM, arch lift in standing for stability walking, balance. Improved glut fac, toe off leaving. Good understanding self manual and how carryover at home. Physical Therapy Plan Frequency and Duration Frequency of Treatment 1x/Week Plan of Care Start Date 11/26/22 Plan of Care End Date 02/24/23 Therapeutic Interventions Therapeutic Interventions Balance Training,Gait Training ,Home Exercise Program,Joint Mobilizations,Manual Therapy, Neuromuscular Re-education, Self-Care/Home Management,Soft Tissue Mobilization,Taping, Therapeutic Exercises Modalities Cold Pack/Ice Massage Next Visit Focus/Plan Next Note Type Treatment Note Next Visit Plan HEP review, continue gait uneven surface/ hurdles carryover for gait and toe off , 1st MTP flexion. Ther Ex/HEP: Landry Big toe (ext) /ankle ROM & Landry Big toe strengthening exercises. SLS activities, balance hurdles, shuttle balance. Modalities for pain as needed.
--- NOTE | 2023-02-18 16:23 | PT.OPDS ---
Current Diagnoses Hallux valgus (acquired), right foot (12/26/22) Hallux valgus (acquired), left foot (12/26/22) Spontaneous rupture of other tendons, unspecified lower leg (12/26/22) Visit Care Team Role Provider Type Yessica Rodgers MD Family Provider Physician Primary Care Provider Specialty: Family Practice Address: [address] [place] [address], [place], [address] Email: [email or web address] Alberto Jimenez DPM Attending Provider Non-Staff Referring Provider Specialty: Podiatry Address: [address] [place], [address] Email: Visit Number Visit Number 04/09 Discharge Summary PT-OP-B Current Condition Start: 11/06/22 11:52 Freq: Status: Active Protocol: Document 11/07/22 09:06 LRN (Rec: 11/07/22 09:56 LRN [id number]) Current Condition History of Current Condition Onset Date 07/23/22 Current Complaints R ankle tightness and pain, limited mobility History of Current Condition R Bunion removed , then tore Tibialis anterior tendon in R ankle and had surgery . Now being referred to PT for rehab. Has been doing R ankle AROM (PF/DF/IV/EV, circles, standing gastroc stretch). Came out of boot and put back in the boot to protect the foot, then came out of boot and was told to move normal. States she has an extra length of tendon in front of ankle placed from organ donor because initially the tendon couldn't be connected. Prior Treatments and Tests gave pt ankle ex's to do daily. Future Testing and Treatments Planned F/U with [facility] this month. Developmental History Developmental History R lateral scar from bunion surgery. Treatment Goals Patient/Caregiver Goals Pt goals with therapy is: Not walk with limp, and normal R ankle mobility, decrease ache/ pain at R ankle (medial lateral and tension along inner edge of foot and tension in front of ankle). Prior Functional Status Baseline Function- ADL's Independent Baseline Function- Mobility Independent Baseline Function- Gait Ambulated without assist device or limp. 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 Baseline Function- Other Normal gait ascend/desend stairs. Current Functional Impairments (Reported) Functional Limitations- ADL's Step to step descending stairs . 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 Functional Limitations- Other Pt not able to squat Personal Factors Other Personal Factors That May Effect Depression controlled by meds. Therapy/Recovery Single. Lives in double level home. PT-OP-C Subjective Start: 11/06/22 11:52 Freq: Status: Active Protocol: Document 12/26/22 08:18 SP (Rec: 12/26/22 09:03 SP [id number]) OP-PT Subjective Patient Comments Patient Comments Pt reported has been compliant with TB ankle HEP and trying walk with hip over ankle and toe in when push off for normal walking. PT-OP-D Balance Start: 11/06/22 11:52 Freq: Status: Active Protocol: Document 11/07/22 09:06 LRN (Rec: 11/07/22 09:56 LRN [id number]) Balance Tests Single Limb Standing Single Limb- Right 1 sec Single Limb- Left 1sec PT-OP-E Functional Tests Start: 11/06/22 11:52 Freq: Status: Active Protocol: Document 11/12/22 09:04 LRN (Rec: 11/12/22 17:16 LRN [id number]) Functional Tests Timed Up and Go (TUG) Score 12 secs Comments Webbed chair, van type shoes. TUG Impairment Rating 20 to <40% Impaired (Score 12- 13) PT-OP-G Mobility & Gait Start: 11/06/22 11:52 Freq: Status: Active Protocol: Document 11/07/22 09:06 LRN (Rec: 11/09/22 14:43 LRN [id number]) OP Gait Assessment Gait Gait Assistance Required: Independent Able to Maintain Weight Bearing Status Yes During Gait Assistive Devices Assistive Device None Gait Deviations General Gait Pattern Antalgic Factors Limiting Gait Function Factors Limiting Gait Function Decreased Sensation,Decreased Strength,Limited Range of Motion,Pain,Poor Balance Comments Gait Comments Minimal limp noted with short step lengths. Pt wearing non supportive shoes, Van-like shoes. PT-OP-H Neuro Start: 11/06/22 11:52 Freq: Status: Active Protocol: Document 11/07/22 09:06 LRN (Rec: 11/09/22 14:43 LRN [id number]) Sensation Evaluation Gross Sensation Gross Sensation Right LE Impaired Sensation Description Numbness Comments Summary Comments R foot: decreased sensation and tissue tightness noted around well healed scars. PT-OP-J Posture/Palpation/Skin Start: 11/06/22 11:52 Freq: Status: Active Protocol: Document 11/07/22 09:06 LRN (Rec: 11/07/22 09:56 LR [id number]) Posture Evaluation Position Standing L-Spine Posture Increased Lordosis Pelvis Posture Anteriorly Tilted Weight Distribution Balanced Knee Posture (L) Neutral,(R) Neutral Ankle/Foot Posture (L) Calcaneal Inversion,(L) Forefoot Abducted,(R) Forefoot Abducted Foot Arch (L) No Arch,(R) No Arch Comments Posture Comments Bilateral Hallux valgus Palpation Assessment Location R foot Palpation Location Anterior and medial along well healed scar Palpation Findings Edema,Soft Tissue Tightness Palpation Details Increased temp at anterior and medial slide of ankle and foot. Tender from proximal end of scar to ankle and at the medial side of foot at proximal end. Palpation of proximal scar at ankle is felt at proximal medial foot scar. R ankle Palpation Location Around malleolus Palpation Findings Edema,Tenderness Palpation Details Increased temp at anterior and medial slide of ankle and foot. Decreased STM anterior and medial along well healed scars. PT-OP-K Range of Motion Start: 11/06/22 11:52 Freq: Status: Active Protocol: Document 11/07/22 09:06 LRN (Rec: 11/07/22 09:56 LR [id number]) Knee Goniometric Range of Motion Knee Right Knee ROM WFL Yes Left Knee ROM WFL Yes Ankle and Foot Goniometric Range of Motion Ankle and Foot Right Active Ankle/Foot ROM WFL No Testing Position Supine Plantarflexion 65 Inversion 20 Eversion 21 Comments DF lacks 4 deg's to neutral Left Active Ankle/Foot ROM WFL Yes Testing Position Supine Dorsiflexion with Knee Extended 7 Plantarflexion 60 Inversion 30 Eversion 28 Toe Range of Motion Toe Right Great Toe MTP Flexion Active (degrees) 53 MTP Extension Active (degrees) 10 Left Great Toe MTP Flexion Active (degrees) 57 MTP Extension Active (degrees) 35 PT-OP-M Strength Start: 11/06/22 11:52 Freq: Status: Active Protocol: Document 11/07/22 09:06 LRN (Rec: 11/07/22 09:56 LRN [id number]) Knee Strength Knee Manual Muscle Testing Right Flexion (S2) 5 Normal Extension (L3) 5 Normal Left Flexion (S2) 5 Normal Extension (L3) 5 Normal Ankle/Foot Strength Ankle and Foot Manual Muscle Testing Right Plantarflexion (S1) 5 Normal Inversion 3+ Fair+ Eversion (S1) 5 Normal Left Comments All strength is 5/5. PT-OP-T Assessment and Plan Start: 11/06/22 11:52 Freq: Status: Active Protocol: Document 02/18/23 16:17 LRN (Rec: 02/18/23 16:23 LRN [id number]) Physical Therapy Assessment Goals Three Impairment Antalgic gait Impairment Decreased R ankle and Big toe mobility resulting in mild antalgic gait. Short Term Goal (STG) Pt will be educated in R ankle mobility and Bilateral big toe ext stretch. 11/12/22: Pt educated in self stretch for Big toe ext. 11/19/22 GOAL MET: ed manual and self application good understanding and demo. STG Duration 11/15/22 (GOAL MET 11/19/22) [facility] Goal (LTG) Pt will be able to walk without a limp, improve R ankle mobility to normal, and improve Landry Big toe extension mobility. 11/19/22: progressing: added heel and toe walking, heel toe mechanics combining. 11/26/22: Mild antalgic limp, R forefoot AB, decr'd WBing RLE. LTG Duration 02/24/23 (02/18/23: Pt not available for final assessment) Two Impairment Decreased R foot scar mobility Impairment R ankle tension: medial/ lateral, along inner edge of foot length, and front of ankle. Short Term Goal (STG) Pt will be educated in self scar mobs and soft tissue mobilization of R foot for pain relief. 11/12/22: Pt I/S in R ankle self scar mobs and gentle STM of lateral ankle. 11/15/22: Pt showed good understandig of scar mobs with improved mobility of lateral R ankle. STG Duration 11/15/22 (11/15/22: MET GOAL) [facility] Goal (LTG) Improve scar and soft tissue mobility to decrease ache/pain at R ankle medial, lateral, along inner edge of foot, and in front of ankle with ankle AROM. 11/19/22: good scar mobility anterior/medial foot. Progressing anterior ankle w/ STMs instructed gentle cross friction manual then self ed. 11/26/22: Tender at R foot lateral scar with decreased longitudinal mobility. Anterior and medial scar mobility is good. 12/13/22: Pain reported only at R inner edge of foot with gait. LTG Duration 02/24/23 (02/18/23: Pt not available for final assessment ) One Impairment Pt lacks appropriate self care HEP. Short Term Goal (STG) Educate pt in supportive shoe wear or use of shoe inserts for plantar arch support. 11/15/22: Discussed supportive shoe wear without heel. Recommended lower outersole but with plantar arch support. 11/26/22: Pt educated in proper shoe wear to provide the proper support while wearing her Superfeet supportive plantar arch supports. 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 11/15/22: HEP: Gastroc Soleus stretch & written I/S for ankle AROM PF/DF/EV/IV. 11/26/22: Pt started on SLS balance training. 12/13/22: HEP: Ankle strengthening with TBand. TBand issued LTG Duration 02/24/23 02/18/23: MET GOAL for pt status at time of her last visit. Assessment Summary Assessment Pt called on 01/06/23 and left message stating she was doing better and didn't feel she needed to continue PT. She asked to cancel all remaining visits. Pt did well with therapy but was not available for final assessment. Pt is being discharged from physical therapy at pt request. Physical Therapy Plan Discharge Physical Therapy Discharge Reasons Patient Request Discharge Comments Thank you for your referral.
== END 2023-02-19 11:27 | disposition home or self-care (01) ==
LOC: PHYS 08:15
PROVIDERS: Absent Provider Family Medicine; Family Provider Family Medicine; PCP Family Medicine; Referring Provider Podiatrist Foot & Ankle Surgery; Visit Provider Podiatrist Foot & Ankle Surgery
DX: M66.869 Spontaneous rupture of other tendons, unspecified lower leg (principal); M20.11 Hallux valgus (acquired), right foot; M20.12 Hallux valgus (acquired), left foot
CPT/HCPCS: 97110; 97112; 97116; 97140; 97162; 97535

== ENCOUNTER → 2023-08-27 11:39 | Outpatient (CLI) | payer OTHER, SELFPAY ==
[2023-08-27 12:42] LABS: Add Manual Diff / Slide Review NO; Basophils Absolute Auto 100 /uL (0-100); Basophils Percent Auto 0.9 % (0-2); Eosinophils Absolute Auto 300 /uL (0-450); Eosinophils Percent Auto 4.6 % (2-4); Hematocrit 36.8 % (36-46); Hemoglobin 12.4 g/dL (12.0-16.0); Lymphocytes Absolute Auto 1600 /uL (1100-4500); Lymphocytes Percent Auto 22.4 % (25-40); Mean Corpuscular HGB Conc 33.8 % (30-36); Mean Corpuscular Hemoglobin 32.3 PG (26-34); Mean Corpuscular Volume 95.5 fL (80-100); Monocytes Absolute Auto 600 /uL (0-900); Neutrophils Absolute Auto 4500 /uL (1500-7000); Neutrophils Percent Auto 64.1 % (50-75); Platelet Count 331 X10^3/uL (150-400); Red Blood Cell Count 3.85 X10^6/uL (4.0-5.2); Red Cell Distribution Width 13.1 % (11.6-14.8)
[2023-08-27 12:57] LABS: Alanine Aminotransferase 36 IU/L (<35); Albumin 4.1 g/dL (3.5-5.0); Albumin Globulin Ratio 1.1 (1.0-2.8); Alkaline Phosphatase 98 U/L (38-126); Aspartate Aminotransferase 33 IU/L (14-36); BUN Creatinine Ratio 10.5 (6-22); Bilirubin Total 0.6 mg/dL (0.2-1.3); Blood Urea Nitrogen 11 mg/dL (7-17); Calcium 9.6 mg/dL (8.4-10.2); Carbon Dioxide 32 mmol/L (22-32); Chloride 99 mmol/L (98-107); Estimated Glomerular Filt Rate > 60 mL/min (>60); Globulin 3.8 g/dL (1.7-4.1); Glucose 79 mg/dL (70-100); HEMOLYSIS < 15 (0-50); Potassium 4.2 mmol/L (3.4-5.1); Sodium 137 mmol/L (137-145); Total Protein 7.9 g/dL (6.3-8.2)
[2023-08-27 13:39] LABS: TSH w/ Reflex to FT4 7.87 uIU/mL (0.47-4.68)
[2023-08-27 14:07] LABS: Free T4, Direct Thyroxine 0.95 ng/dL (0.78-2.19)
[2023-09-01 15:55] LABS: Lamotrigine Lamictal 8.5 ug/mL (2.0-20.0)
== END ==
PROVIDERS: Family Provider Family Medicine; PCP Family Medicine; Referring Provider Family Medicine; Visit Provider Family Medicine
DX: F33.3 Major depressive disorder, recurrent, severe with psychotic symptoms (principal); E03.9 Hypothyroidism, unspecified
CPT/HCPCS: 36415; 80053; 80175; 84439; 84443; 85025

== ENCOUNTER → 2023-11-11 11:29 | Outpatient (CLI) | payer OTHER, SELFPAY ==
[2023-11-11 13:21] LABS: Alanine Aminotransferase 17 IU/L (<35); Albumin 4.1 g/dL (3.5-5.0); Albumin Globulin Ratio 1.2 (1.0-2.8); Alkaline Phosphatase 82 U/L (38-126); Aspartate Aminotransferase 22 IU/L (14-36); BUN Creatinine Ratio 11.6 (6-22); Bilirubin Total 0.4 mg/dL (0.2-1.3); Blood Urea Nitrogen 14 mg/dL (7-17); Calcium 9.3 mg/dL (8.4-10.2); Carbon Dioxide 28 mmol/L (22-32); Chloride 102 mmol/L (98-107); Estimated Glomerular Filt Rate 56 mL/min (>60); Globulin 3.4 g/dL (1.7-4.1); Glucose 77 mg/dL (70-100); HEMOLYSIS < 15 (0-50); Sodium 139 mmol/L (137-145); Total Protein 7.5 g/dL (6.3-8.2)
[2023-11-11 13:46] LABS: TSH w/ Reflex to FT4 1.31 uIU/mL (0.47-4.68)
== END ==
PROVIDERS: Family Provider Family Medicine; PCP Family Medicine; Referring Provider Family Medicine; Visit Provider Family Medicine
DX: E03.9 Hypothyroidism, unspecified (principal); R74.8 Abnormal levels of other serum enzymes
CPT/HCPCS: 36415; 80053; 84443

== ENCOUNTER → 2023-12-12 12:36 | Outpatient (CLI) | payer OTHER, SELFPAY ==
[2023-12-12 15:07] LABS: BUN Creatinine Ratio 8.6 (6-22); Blood Urea Nitrogen 9 mg/dL (7-17); Calcium 9.9 mg/dL (8.4-10.2); Carbon Dioxide 32 mmol/L (22-32); Chloride 103 mmol/L (98-107); Estimated Glomerular Filt Rate > 60 mL/min (>60); Glucose 79 mg/dL (70-100); HEMOLYSIS < 15 (0-50); Potassium 4.4 mmol/L (3.4-5.1); Sodium 140 mmol/L (137-145)
== END ==
PROVIDERS: Family Provider Family Medicine; PCP Family Medicine; Referring Provider Family Medicine; Visit Provider Family Medicine
DX: N28.9 Disorder of kidney and ureter, unspecified (principal)
CPT/HCPCS: 36415; 80048

== ENCOUNTER → 2024-12-24 10:29 | Outpatient (CLI) | payer OTHER, SELFPAY ==
[2024-12-24 12:07] LABS: BUN Creatinine Ratio 13.8 (6-22); Blood Urea Nitrogen 16 mg/dL (7-17); Calcium 9.8 mg/dL (8.4-10.2); Carbon Dioxide 29 mmol/L (22-32); Chloride 100 mmol/L (98-107); Cholesterol 222 mg/dL (140-199); Estimated Glomerular Filt Rate 59 mL/min (>60); Glucose 86 mg/dL (70-100); HDL Cholesterol 62 mg/dL (40-60); HEMOLYSIS < 15 (0-50); LDL Cholesterol Calculated 130 mg/dL (<100); Potassium 4.1 mmol/L (3.4-5.1); Sodium 139 mmol/L (137-145); Triglycerides 150 mg/dL (35-150)
[2024-12-24 12:27] LABS: Thyroid Stimulating Hormone 1.75 uIU/mL (0.47-4.68)
== END ==
PROVIDERS: Family Provider Family Medicine; PCP Family Medicine; Referring Provider Family Medicine; Visit Provider Family Medicine
DX: Z13.220 Encounter for screening for lipoid disorders (principal); R79.89 Other specified abnormal findings of blood chemistry; E03.9 Hypothyroidism, unspecified
CPT/HCPCS: 36415; 80048; 80061; 84443

== ENCOUNTER 2025-04-19 10:45 | Emergency (ER) | payer OTHER, SELFPAY ==
[2025-04-19] VITALS (8 sets, daily range): BP systolic 115–123; BP diastolic 61–77; PULSE 59–85; RESP 9–15; TEMP 36.4; O2SAT 96–100; BMI 29.9
--- NOTE | 2025-04-19 10:54 | EKG_ITS ---
[address] [address] Test Date: 2025-04-19 Pat Name: Barbara Toro Department: Room: Gender: Female [employer]: VINNIE : 1975 Requested By: Order Number: [id number] Reading MD: Waldo Avendano Measurements Intervals [place] Rate: 63 P: 32 GA: 152 QRS: 4 QRSD: 82 T: 25 QT: 430 QTc: 440 Interpretive Statements Normal sinus rhythm Electronically Signed On 04-20-2025 15:02:42 PDT by Waldo Avendano
--- NOTE | 2025-04-19 10:54 | DI.RAD.S_ITS ---
PROCEDURE: XR CHEST 1V INDICATIONS: Chest Pain TECHNIQUE: One view of the chest was acquired. COMPARISON: None. FINDINGS: Surgical changes and devices: None. Lungs and pleura: Lungs are clear. No pleural effusions or pneumothorax. Mediastinum: Mediastinal contours appear normal. Heart size is normal. Bones and chest wall: No suspicious bony lesions. Overlying soft tissues appear unremarkable. IMPRESSION: Portable chest study within normal limits. Dictated by: Osmin Salazar M.D. on 04/19/2025 at 10:20 Approved by: Osmin Salazar M.D. on 04/19/2025 at 10:20
[2025-04-19 11:08] LABS: Add Manual Diff / Slide Review NO; Hematocrit 38.6 % (36-46); Hemoglobin 13.3 g/dL (12.0-16.0); INR 1.0 (0.9-1.3); Lymphocytes Absolute Auto 1900 /uL (1100-4500); Mean Corpuscular HGB Conc 34.5 % (30-36); Mean Corpuscular Hemoglobin 32.4 PG (26-34); Mean Corpuscular Volume 93.9 fL (80-100); Platelet Count 338 X10^3/uL (150-400); Prothrombin Time 11.7 SECONDS (9.4-12.5)
[2025-04-19 11:11] LABS: PTT Partial Thromboplastin Tim 34 SECONDS (25.1-36.5)
[2025-04-19 11:13] LABS: Alanine Aminotransferase 22 IU/L (<35); Albumin 4.8 g/dL (3.5-5.0); Albumin Globulin Ratio 1.2 (1.0-2.8); Alkaline Phosphatase 83 U/L (38-126); Blood Urea Nitrogen 16 mg/dL (7-17); Calcium 9.4 mg/dL (8.4-10.2); Carbon Dioxide 27 mmol/L (22-32); Chloride 100 mmol/L (98-107); Creatine Kinase 68 U/L (30-135); Estimated Glomerular Filt Rate 59 mL/min (>60); Globulin 4.1 g/dL (1.7-4.1); Glucose 82 mg/dL (70-99); HEMOLYSIS < 15 (0-50); Lipase 50 U/L (23-300); Magnesium 1.9 mg/dL (1.6-2.3); Potassium 3.9 mmol/L (3.4-5.1); Sodium 138 mmol/L (137-145); Total Protein 8.9 g/dL (6.3-8.2)
[2025-04-19 11:24] LABS: NT-proBNP (BNP-Adult 18+) 95 pg/mL (<125); Troponin I < 0.012 ng/mL (0.01-0.034)
--- NOTE | 2025-04-19 11:44 | ED_ITS ---
HPI - Arrhythmia/Palpitations General Chief Complaint: Arrhythmia/Palpitations Stated Complaint: Heart is skipping a beat on and off Time Seen by Provider: 04/19/25 11:02 Source: patient Mode of arrival: Ambulatory Limitations: no limitations History of Present Illness HPI narrative: 49-year-old female patient with history of anxiety/depression and hypothyroidism who has had palpitations off and on for years but they became worse last night. She felt that she was having skipped beats for about 2 hours and then they went away. It came back again this morning for a 1/2 hour. Currently no symptoms. No chest pain or shortness of breath. Related Data Home Medications ?Medication ?Instructions ?Recorded ?Confirmed levocetirizine 5 mg tablet (Xyzal) 5 mg PO DAILY PRN a llergy symptoms 04/19/22 04/19/25 Previous Rx's ?Medication ?Instructions ?Recorded fluoxetine 20 mg capsule 60 mg (3 x 20 mg) PO DAILY 9 0 days 11/08/24 #270 caps levothyroxine 137 mcg tablet 137 mcg PO DAILY #90 tabs 11/09/24 diazepam 10 mg tablet See Rx Instructions PO .COMP ANITA 04/04/25 #45 tabs lamotrigine 100 mg tablet 300 mg (3 x 100 mg) PO DAILY #270 04/04/25 tabs ziprasidone HCl 80 mg capsule 160 mg (2 x 80 mg) PO BE DTIME 90 04/04/25 days #180 caps Allergies Allergy/AdvReac Type Severity Reaction Status Date / Time No Known Drug Allergies Allergy Verified 04/19/25 10:54 Review of Systems Review of Systems Narrative: GENERAL: Denies chills, fatigue, malaise, fever, sweats. HEENT: Denies sinus pain, ear pain, sore throat, difficulty swallowing, dizziness. RESPIRATORY: Denies dyspnea, cough, wheezing, hemoptysis, sputum. CARDIOVASCULAR: See HPI. Denies chest pain, orthopnea, edema, GASTROINTESTINAL: Denies nausea, vomiting, abdominal pain, diarrhea, constipation, melena. : Denies dysuria, frequency, incontinence, hematuria, urinary retention. MUSCULOSKELETAL: denies weakness, joint pain, or bony pain SKIN: Denies rash, skin lesions, or other NEUROLOGIC: Denies weakness, headache, numbness, change in speech, confusion, seizures, incoordination. PSYCHIATRIC: No concerning psychosocial issues. 12 point review of systems is negative except for those stated above Patient History Medical History (Updated 04/19/25 @ 12:36 by Tommy Pedro MD) Anxiety Depression Fibroids Hypothyroidism Surgical History No history of previous surgery (06/2016) Family History Brother Age: 44 Depression Mental health problem Joint pain Father Age: 74 Depression Diabetes mellitus Hypertension Mental health problem Grandfather Stroke Heart disease Mother Age: 69 Anxiety Mental health problem Grandmother Age: 91 Alzheimer's disease Mental health problem Grandmother No problems noted. Grandfather No problems noted. Social History marital status: unmarried,single household members: family lives independently: Yes caregiver/support person: No housing: apartment pets and animals: Yes education level: college occupational status: employed current occupational exposures/hazards: No special frederick needs: No leisure activities: reading seatbelt use: always helmet use: Yes water heater temp set < 120 deg: Yes working smoke detector in home: Yes fire extinguisher in home: Yes carbon monox detector in home: Yes firearms in home: No do you feel safe at home: Yes Smoking Status: Unknown if ever smoked second hand exposure: No alcohol intake: never substance use type: does not use during the past year weight has: decreased > 10 lbs well-balanced diet: daily or most days daily servings fruits/ve-4 caffeine: Yes eating out: rarely or never Type(s) of exercise: walking frequency: daily duration: 30-45 minutes/day Smoking Status: Unknown if ever smoked Exam Narrative Exam Narrative: GENERAL: [] year old patient appears stated age. Well-developed patient, in mild distress. HEAD: Atraumatic. Normocephalic. EYES: Pupils equal round and reactive. Extraocular motions intact. No scleral icterus. No injection or drainage. ENT: Nose without bleeding, purulent drainage. Throat without erythema, tonsillar hypertrophy or exudate. Airway patent. NECK: Trachea midline. Non tender CARDIOVASCULAR: Regular rate and rhythm without murmurs, gallops, or rubs. RESPIRATORY: Clear to auscultation. Breath sounds equal bilaterally. No wheezes, rales, or rhonchi. GASTROINTESTINAL: Abdomen soft, non-tender, nondistended. EXTREMITIES: No edema or joint tenderness. BACK: Nontender without deformity or crepitance. No flank tenderness. NEURO: AOx3. SKIN: No rash or erythema of visible areas Initial Vital Signs Initial Vital Signs: Vital Signs Temperature 97.6 F 04/19/25 10:46 Pulse Rate 80 04/19/25 10:46 Respiratory Rate 14 04/19/25 10:46 Blood Pressure 120/69 04/19/25 10:46 Pulse Oximetry 98 04/19/25 10:46 Oxygen Delivery Method Room Air 04/19/25 10:46 Course Orders Ordered: ED Orders 04/19/25 10:54 XR chest 1V Stat EKG-12 Lead Stat 04/19/25 10:55 Complete Blood Count AUTO DIFF Stat Comprehensive Metabolic Panel Stat Lipase Stat Magnesium Stat NT-proBNP (BNP-Adult 18+) Stat PTT Partial Thromboplastin Dev Stat Prothrombin Time INR Stat Troponin & CK Cardiac Panel Stat Vital Signs Vital signs: Vital Signs - 8 hr 04/19/25 10:46 04/19/25 10:51 04/19/25 10:53 Temperature 97.6 F Pulse Rate 80 85 70 Respiratory Rate 14 Blood Pressure 120/69 Pulse Oximetry 98 96 99 Oxygen Delivery Method Room Air 04/19/25 10:53 04/19/25 11:00 04/19/25 11:00 Temperature Pulse Rate 65 Respiratory Rate 9 L Blood Pressure 120/69 119/73 Pulse Oximetry 100 Oxygen Delivery Method 04/19/25 11:30 04/19/25 11:31 04/19/25 11:31 Temperature Pulse Rate 67 63 Respiratory Rate 10 L 11 L Blood Pressure 123/69 Pulse Oximetry 99 98 Oxygen Delivery Method 04/19/25 12:00 04/19/25 12:00 Temperature Pulse Rate 59 L Respiratory Rate 11 L Blood Pressure 115/61 Pulse Oximetry 99 Oxygen Delivery Method Room Air MDM - Arrhythmia/Palpitations Differential Diagnosis Differential diagnosis: Likely palpitations and anxiety Condition is:: Improved Chronic Condition is having:: Mild excerbation Lab Data Attestation: I reviewed the patient's lab results. (Unremarkable and reassuring) 04/19/25 10:55 04/19/25 10:55 Labs: Lab Results 04/19/25 Range/Units 10:55 WBC 7.5 (4.5-11.0) X10^3/uL RBC 4.11 (4.0-5.2) X10^6/uL Hgb 13.3 (12.0-16.0) g/dL Hct 38.6 (36-46) % MCV 93.9 (80-100) fL MCH 32.4 (26-34) PG MCHC 34.5 (30-36) % RDW 12.5 (11.6-14.8) % Plt Count 338 (150-400) X10^3/uL Neut % (Auto) 61.4 (50-75) % Lymph % (Auto) 25.1 (25-40) % [place] % (Auto) 7.4 (3-14) % Eos % (Auto) 5.3 H (2-4) % Baso % (Auto) 0.8 (0-2) % Neut # (Auto) 4600 (1240-3761) /uL Lymph # (Auto) 1900 (7580-8823) /uL [place] # (Auto) 600 (0-900) /uL Eos # (Auto) 400 (0-450) /uL Baso # (Auto) 100 (0-100) /uL PT 11.7 (9.4-12.5) SECONDS INR 1.0 (0.9-1.3) APTT 34 (25.1-36.5) SECONDS Sodium 138 (137-145) mmol/L Potassium 3.9 (3.4-5.1) mmol/L Chloride 100 (98-107) mmol/L Carbon Dioxide 27 (22-32) mmol/L BUN 16 (7-17) mg/dL Creatinine 1.16 H (0.52-1.04) mg/dL Estimated GFR 59 L (>60) mL/min BUN/Creatinine Ratio 13.8 (6-22) Glucose 82 (70-99) mg/dL Calcium 9.4 (8.4-10.2) mg/dL Magnesium 1.9 (1.6-2.3) mg/dL Total Bilirubin 0.7 (0.2-1.3) mg/dL AST 32 (14-36) IU/L ALT 22 (<35) IU/L Alkaline Phosphatase 83 (38-126) U/L Total Creatine Kinase 68 (30-135) U/L Troponin I < 0.012 (0.01-0.034) ng/mL NT-Pro-B Natriuret Pep 95 (<125) pg/mL Total Protein 8.9 H (6.3-8.2) g/dL Albumin 4.8 (3.5-5.0) g/dL Globulin 4.1 (1.7-4.1) g/dL Albumin/Globulin Ratio 1.2 (1.0-2.8) Lipase 50 (23-300) U/L Imaging Data Chest x-ray: Attestation: I personally reviewed and interpreted this imaging study as follows: (Unremarkable. No acute disease) ECG Data Attestation: I personally reviewed and interpreted this ECG as follows: (Normal sinus rhythm with a rate of 63. Normal axis and intervals. No ischemic changes. ) MDM Narrative Medical decision making narrative: Patient has acute exacerbation of chronic palpitations which were feeling of skipped beats. She also has underlying anxiety. ER workup includes physical exam, vital signs, lab work, chest x-ray and EKG all reassuring and unremarkable. No further workup needed in the ER. Patient will follow up with primary care. Perhaps needs event monitor or Holter monitor and then further follow-up. Return to the ER if worse. Discharge Plan Departure Patient Disposition: Home Clinical Impression: Palpitations Instructions: DI for Palpitations Activity Restrictions/Additional Instructions: Plan: Monitor symptoms and follow up with your doctor within the next week. May need Holter or event monitor and then follow up assessment. May need cardiology referral. Return to the ER if worse Prescriptions: No Action levocetirizine [Xyzal] 5 mg tablet 5 mg PO DAILY PRN (Reason: allergy symptoms) diazepam 10 mg tablet See Rx Instructions PO .COMPLEX Qty: 45 3RF Rx Instructions: Take 5mg (1/2 tab)PO QAM and 10mg (1 tab)PO QHS lamotrigine 100 mg tablet 300 mg PO DAILY Qty: 270 3RF ziprasidone HCl 80 mg capsule 160 mg PO BEDTIME 90 Days Qty: 180 3RF fluoxetine 20 mg capsule 60 mg PO DAILY 90 Days Qty: 270 3RF levothyroxine 137 mcg tablet 137 mcg PO DAILY Qty: 90 2RF Referrals: Yessica Rodgers MD [Primary Care Provider, Family Practice] Stand Alone Forms: Patient Portal/API
== END 2025-04-19 12:42 | disposition home or self-care (01) ==
PROVIDERS: Emergency Provider Emergency Medicine; PCP Family Medicine
DX: R00.2 Palpitations (principal)
CPT/HCPCS: 71045; 80053; 82550; 83690; 83735; 83880; 84484; 85025; 85610; 85730; 93005; 99283; 99284

== ENCOUNTER → 2025-05-04 09:44 | Outpatient (CLI) | payer OTHER, SELFPAY ==
[2025-05-04 10:43] LABS: Add Manual Diff / Slide Review NO; Hematocrit 35.9 % (36-46); Hemoglobin 12.4 g/dL (12.0-16.0); Lymphocytes Absolute Auto 1400 /uL (1100-4500); Mean Corpuscular HGB Conc 34.7 % (30-36); Mean Corpuscular Hemoglobin 32.5 PG (26-34); Mean Corpuscular Volume 93.7 fL (80-100); Platelet Count 292 X10^3/uL (150-400)
[2025-05-04 10:52] LABS: Hemoglobin A1C% w Est Avg Glu 5.0 % (4.0-6.0)
[2025-05-04 10:54] LABS: Alanine Aminotransferase 27 IU/L (<35); Albumin 4.4 g/dL (3.5-5.0); Albumin Globulin Ratio 1.2 (1.0-2.8); Alkaline Phosphatase 86 U/L (38-126); Blood Urea Nitrogen 12 mg/dL (7-17); Calcium 9.2 mg/dL (8.4-10.2); Carbon Dioxide 28 mmol/L (22-32); Chloride 99 mmol/L (98-107); Cholesterol 205 mg/dL (140-199); Estimated Glomerular Filt Rate 59 mL/min (>60); Globulin 3.7 g/dL (1.7-4.1); Glucose 89 mg/dL (70-99); HDL Cholesterol 54 mg/dL (40-60); HEMOLYSIS < 15 (0-50); Potassium 3.9 mmol/L (3.4-5.1); Sodium 139 mmol/L (137-145); Total Protein 8.1 g/dL (6.3-8.2); Triglycerides 106 mg/dL (35-150)
[2025-05-06 08:36] LABS: Lamotrigine Lamictal 11.6 ug/mL (2.0-20.0)
== END ==
PROVIDERS: PCP Family Medicine; Referring Provider Psychiatry & Neurology Psychiatry; Visit Provider Psychiatry & Neurology Psychiatry
DX: F33.3 Major depressive disorder, recurrent, severe with psychotic symptoms (principal); Z79.899 Other long term (current) drug therapy
CPT/HCPCS: 36415; 80053; 80061; 80175; 83036; 85025

== ENCOUNTER → 2025-05-05 10:41 | Outpatient (CLI) | payer OTHER, SELFPAY ==
--- NOTE | 2025-05-05 10:42 | DI.US.S_ITS ---
PROCEDURE: US RENAL COMPLETE INDICATIONS: elevated creatinine TECHNIQUE: Real-time scanning was performed of the kidneys and bladder, with image documentation. COMPARISON: None. FINDINGS: Kidneys: Kidneys are normal in size. Right kidney measures 9.4 cm long; left kidney measures 8.9 cm long. Renal cortical echotexture is normal. No hydronephrosis or nephrolithiasis. No suspicious solid mass lesions. Bladder: Pre-void images demonstrate no intraluminal masses or stones. On pre- void images, both ureteral jets are noted with color Doppler interrogation. (Of note, ureteral jets may not be detectable in up to 25% of cases due to insufficient differences in specific gravity between ureteral and bladder urine). Miscellaneous: No free pelvic fluid. IMPRESSION: No hydronephrosis. Dictated by: Navneet Almonte M.D. on 05/05/2025 at 16:01 Approved by: Navneet Almonte M.D. on 05/05/2025 at 16:03
== END ==
PROVIDERS: PCP Family Medicine; Referring Provider Family Medicine; Visit Provider Family Medicine
DX: R79.89 Other specified abnormal findings of blood chemistry (principal)
CPT/HCPCS: 76770